=== PATIENT | female | born 1955 | race African-American/Black ===

== ENCOUNTER 2017-04-13 07:09 | Inpatient (IN) | payer OTHER ==
[2017-04-13] MEDS ORDERED: NEOSTIGMINE METHYLSULFATE 10 MG/10 ML VIAL ONE (07:52)
[2017-04-13] MEDS ORDERED: DEXAMETHASONE SOD PHOSPHATE INJ 4 MG/1 ML VIAL ONE (07:52)
[2017-04-13] MEDS ORDERED: ONDANSETRON HCL INJ/PF 4 MG/2 ML SDV ONE (07:52)
[2017-04-13] MEDS ORDERED: GLYCOPYRROLATE INJ 0.4 MG/2 ML VIAL ONE (07:52)
[2017-04-13] MEDS ORDERED: KETOROLAC TROMETHAMINE 60 MG/2 ML SDV ONE (07:52)
[2017-04-13 07:53] LABS: ABSOLUTE EOSINOPHILS # (AUTO) 0.2 10^3/uL (0.0-0.6); ABSOLUTE MONOCYTES (AUTO) 0.5 10^3/uL (0.1-1.4); ABSOLUTE NEUT (AUTO) 4.1 10^3/uL (1.7-8.2); BASOPHILS % (AUTO) 0.8 % (0-2); HEMATOCRIT 40.4 % (36.0-47.0); HEMOGLOBIN 12.7 g/dL (12.0-15.5); HGB HCT DIFFERENCE -2.3; LYMPHOCYTES % (AUTO) 16.9 % (13-45); MEAN CORPUSCULAR HGB CONC 31.4 g/dL (32.0-36.0); MEAN CORPUSCULAR VOLUME 67 fl (80-97); MONOCYTES % (AUTO) 8.4 % (3-13); RED BLOOD COUNT 6.06 10^6/uL (3.72-5.28); RED CELL DISTRIBUTION WIDTH 14.7 % (11.5-14.0); SEGMENTED NEUTROPHILS % (AUTO) 70.9 % (42-78); WHITE BLOOD COUNT 5.7 10^3/uL (4.0-10.5)
[2017-04-13 08:06] LABS: ALANINE AMINOTRANSFERASE 23 U/L (9-52); ALBUMIN 4.5 g/dL (3.5-5.0); ALKALINE PHOSPHATASE 156 U/L (38-126); ANION GAP 16 (5-19); ASPARTATE AMINO TRANSFERASE 18 U/L (14-36); BILIRUBIN,DIRECT 0.3 mg/dL (0.0-0.4); BILIRUBIN,TOTAL 0.5 mg/dL (0.2-1.3); BLOOD UREA NITROGEN 15 mg/dL (7-20); CALCIUM 9.4 mg/dL (8.4-10.2); CARBON DIOXIDE 21 mmol/L (22-30); CHLORIDE 108 mmol/L (98-107); CREATININE RESULT 1.15 mg/dL (0.52-1.25); GLUCOSE 146 mg/dL (75-110); LIPASE 303.4 U/L (23-300); POTASSIUM 3.9 mmol/L (3.6-5.0); SODIUM 144.8 mmol/L (137-145); TOTAL PROTEIN 8.8 g/dL (6.3-8.2)
[2017-04-13] MEDS ORDERED: MORPHINE SULFATE 10 MG/ML INJ IV ONE (08:13)
[2017-04-13 08:47] LABS: APPEARANCE,URINE SLIGHTLY-CLOUDY; BILIRUBIN,URINE NEGATIVE (NEGATIVE); GLUCOSE, URINE NEGATIVE (NEGATIVE); KETONES,URINE NEGATIVE (NEGATIVE); LEUKOCYTE ESTERASE,URINE LARGE (NEGATIVE); NITRITE,URINE NEGATIVE (NEGATIVE); PROTEIN,URINE NEGATIVE (NEGATIVE); URINE SPECIFIC GRAVITY 1.015; UROBILINOGEN,URINE NEGATIVE mg/dL (<2.0)
--- NOTE | 2017-04-13 08:47 | ER Document Report ---
ED General - General Chief Complaint: Abdominal Pain Stated Complaint: ABDOMINAL PAIN Time Seen by Provider: 04/13/17 07:27 Mode of Arrival: Ambulatory Information source: Patient Notes: 62-year-old female history of intestinal obstruction presents with complaints of abdominal cramping that started this morning. Patient notes yesterday she had a bowel movement she had no other complaints this morning she has had no bowel movement and feels bloated. Patient has not been nauseous or vomiting. TRAVEL OUTSIDE OF THE [place] IN LAST 30 DAYS: No - HPI Onset: Just prior to arrival Onset/Duration: Sudden Quality of pain: Cramping Severity: Mild Pain Level: 1 Associated symptoms: Other Exacerbated by: Denies Relieved by: Denies Similar symptoms previously: Yes Recently seen / treated by doctor: No - Related Data Allergies/Adverse Reactions: No Known Allergies Allergy (Verified 01/09/12 17:48) Past Medical History - Social History Smoking Status: Never Smoker Cigarette use (# per day): No Chew tobacco use (# tins/day): No Smoking Education Provided: No Frequency of alcohol use: None Drug Abuse: None Family History: Reviewed & Not Pertinent Patient has suicidal ideation: No Patient has homicidal ideation: No - Past Medical History Cardiac Medical History: Reports: Hx Hypercholesterolemia, Hx Hypertension Pulmonary Medical History: Denies: Hx Tuberculosis Neurological Medical History: Denies: Hx Seizures Endocrine Medical History: Reports: Hx Diabetes Mellitus Type 2 Renal/ Medical History: Denies: Hx Peritoneal Dialysis GI Medical History: Reports: Hx Gastroesophageal Reflux Disease, Hx Hiatal Hernia Past Surgical History: Reports: Hx Abdominal Surgery - hernia-7yrs ago, Hx Section, Hx Hysterectomy. Denies: Hx Pacemaker - Immunizations Hx Diphtheria, Pertussis, Tetanus Vaccination: - known Hx Pneumococcal Vaccination: 06/25/06 Review of Systems - Review of Systems Notes: REVIEW OF SYSTEMS: CONSTITUTIONAL : Denies fever, chills, or sweats. Denies recent illness. EENT: Denies eye, ear, throat, or mouth pain or symptoms. Denies nasal or sinus congestion or discharge. Denies throat, tongue, or mouth swelling or difficulty swallowing. CARDIOVASCULAR: Denies chest pain. Denies palpitations or racing or irregular heart beat. Denies ankle edema. RESPIRATORY: Denies cough, cold, or chest congestion. Denies shortness of breath, difficulty breathing, or wheezing. GASTROINTESTINAL: Admits to abdominal pain. GENITOURINARY: Denies difficulty urinating, painful urination, burning, frequency, blood in urine, or discharge. FEMALE GENITOURINARY: Denies vaginal bleeding, heavy or abnormal periods, irregular periods. Denies vaginal discharge or odor. MUSCULOSKELETAL: Denies back or neck pain or stiffness. Denies joint pain or swelling. SKIN: Denies rash, lesions or sores. HEMATOLOGIC : Denies easy bruising or bleeding. LYMPHATIC: Denies swollen, enlarged glands. NEUROLOGICAL: Denies confusion or altered mental status. Denies passing out or loss of consciousness. Denies dizziness or lightheadedness. Denies headache. Denies weakness or paralysis or loss of use of either side. Denies problems with gait or speech. Denies sensory loss, numbness, or tingling. Denies seizures. PSYCHIATRIC: Denies anxiety or stress. Denies depression, suicidal ideation, or homicidal ideation. ALL OTHER SYSTEMS REVIEWED AND NEGATIVE. PHYSICAL EXAMINATION: GENERAL: Well-appearing, well-nourished and in no acute distress. HEAD: Atraumatic, normocephalic. EYES: Pupils equal round and reactive to light, extraocular movements intact, conjunctiva are normal. ENT: Nares patent, oropharynx clear without exudates. Moist mucous membranes. NECK: Normal range of motion, supple without lymphadenopathy LUNGS: Breath sounds clear to auscultation bilaterally and equal. No wheezes rales or rhonchi. HEART: Regular rate and rhythm without murmurs ABDOMEN: Soft, n tender in the suprapubic region no rebound or guarding Female : deferred Musculoskeletal: Normal range of motion, no pitting or edema. No cyanosis. NEUROLOGICAL: Cranial nerves grossly intact. Normal speech, normal gait. Normal sensory, motor exams PSYCH: Normal mood, normal affect. SKIN: Warm, Dry, normal turgor, no rashes or lesions noted. Dictation was performed using [employer] voice recognition software Course - Re-evaluation Re-evalutation: 04/13/17 08:47 CT abdomen pelvis with oral and IV contrast pending to rule out any abdominal obstruction 04/13/17 10:37 Patient is noted to have an obstruction on CT with oral and IV contrast Dr. Bell has been notified NG tube has been ordered - Laboratory Result Diagrams: 04/13/17 07:43 04/13/17 07:43 Laboratory results interpreted by me: 04/13/17 04/13/17 04/13/17 07:43 07:43 08:30 RBC 6.06 H MCV 67 L MCH 21.0 L MCHC 31.4 L RDW 14.7 H Chloride 108 H Carbon Dioxide 21 L Est GFR ( Amer) 58 L Est GFR (Non-Af Amer) 48 L Glucose 146 H Alkaline Phosphatase 156 H Total Protein 8.8 H Lipase 303.4 H Urine Blood MODERATE H Ur Leukocyte Esterase LARGE H - Diagnostic Test Radiology reviewed: Image reviewed, Reports reviewed Discharge - Discharge Clinical Impression: SBO (small bowel obstruction) Condition: Stable Disposition: ADMITTED INPATIENT Admitting Provider: Surgicalist Unit Admitted: Surgical Floor Referrals: SHIRA STEINBERG MD [Primary Care Provider] - Follow up as needed
--- NOTE | 2017-04-13 10:31 | RADIOLOGY REPORT (SQ) ---
EXAM DESCRIPTION: CT ABD/PELVIS WITH IV ORAL COMPLETED DATE/TIME: 04/13/2017 10:10 am REASON FOR STUDY: abd pain COMPARISON: None. TECHNIQUE: CT scan of the abdomen and pelvis performed using helical scanning technique with dynamic intravenous contrast injection. No oral contrast. Images reviewed with lung, soft tissue, and bone windows. Reconstructed coronal and sagittal MPR images reviewed. Delayed images for evaluation of the urinary system also acquired. All images stored on PACS. All CT scanners at this facility use dose modulation, iterative reconstruction, and/or weight based d osing when appropriate to reduce radiation dose to as low as reasonably achievable (ALARA). [facility]: Dose Right [facility]: CareDose [facility]: Dose Right [facility]: Teradose 4D [facility]: [email or web address] CONTRAST TYPE AND DOSE: contrast/concentration: Isovue 370.00 mg/ml; Total Contrast Delivered: 100.0 ml; Total Saline Delivered: 54.4 ml RENAL FUNCTION: Creatinine 1.15 RADIATION DOSE: Up-to-date CT equipment and radiation dose reduction techniques were employed. CTDIv ol: NaN - NaN mGy. DLP: 0 mGy-cm.. LIMITATIONS: None. FINDINGS: LOWER CHEST: There are some minimal linear densities in the lung bases most consistent wit h subsegmental atelectasis. LIVER: Normal size. No masses. No dilated ducts. SPLEEN: Normal size. No focal lesions. PANCREAS: No masses. No significant calcifications. No adjacent inflammation or peripancreatic fluid collections. Pancreatic duct not dilated. GALLBLADDER: No identified stones by CT criteria. No inflammatory changes to suggest cholecystitis. ADRENAL GLANDS: No significant masses or asymmetry. RIGHT KIDNEY AND URETER: No solid masses. No significant calcifications. No hydronephrosis or hyd roureter. LEFT KIDNEY AND URETER: No solid masses. No significant calcifications. No hydronephrosis or hydr oureter. AORTA AND VESSELS: No aneurysm. No dissection. Renal arteries, SMA, celiac without stenosis. RETROPERITONEUM: No retroperitoneal adenopathy, hemorrhage or masses. BOWEL AND PERITONEAL CAVITY: There is a large anterolateral hernia sac on the right containing bowel. There are dilated small bowel loops consistent with a small bowel obstruction. A "whirl" sign is i dentified consistent with rotation of the bowel around a vascular axis and the appearance would sugge st a closed loop obstruction. Clinical correlation is recommended. APPENDIX: Not identified PELVIS: No mass. No free fluid. Normal bladder. ABDOMINAL WALL: No masses. Large anterolateral hernia sac on the right. A smaller ventral hernia is identified just to the right of midline containing fat. BONES: No significant or acute findings. OTHER: No other significant finding. IMPRESSION: There is a large anterolateral hernia sac on the right containing bowel. There are dila sandro small bowel loops with an associated "whirl" sign suggesting a closed loop obstruction. Clinical correlation is recommended. Other findings as noted above TECHNICAL DOCUMENTATION: JOB ID: [id number] Quality ID # [id number]: Final reports with documentation of one or more dose reduction techniques (e.g., Au tomated exposure control, adjustment of the mA and/or kV according to patient size, use of iterative reconstruction technique) 2010 [employer]- All Rights Reserved
[2017-04-13] MEDS ORDERED: PHARMACY COMMUNICATION ORDER MC NR (10:45)
[2017-04-13] MEDS ORDERED: MORPHINE SULFATE 10 MG/ML INJ IV PRN ×2 (11:10→13:18)
[2017-04-13] MEDS ORDERED: RINGERS SOLUTION,LACTATED 1,000 ML IV ONE (11:10)
--- NOTE | 2017-04-13 11:28 | RADIOLOGY REPORT (SQ) ---
EXAM DESCRIPTION: KUB/ABDOMEN (SINGLE VIEW) COMPLETED DATE/TIME: 04/13/2017 11:19 am REASON FOR STUDY: Check Placement of NG Tube COMPARISON: None. TECHNIQUE: AP view of the lower thorax and upper abdomen LIMITATIONS: None. FINDINGS: NG tube is identified with its tip in the left upper quadrant presumably within the stomac h. IMPRESSION: NG tube with its tip in the left upper quadrant presumably within the stomach. TECHNICAL DOCUMENTATION: JOB ID: [id number] [employer]- All Rights Reserved
--- NOTE | 2017-04-13 11:59 | PDOC H&P ---
History of Present Illness Admission Date/PCP: 04/13/17 10:49 SHIRA STEINBERG MD Patient complains of: Abdominal pain History of Present Illness: TAJ PENN is a 62 year old female with 24 hr hisory of abdominal pain. No N/V or diarrhea. Normal BM yesterday. PMH sign for obstructed UH in 2011 requiring surgery. Past Medical History Cardiac Medical History: Reports: Hyperlipidema, Hypertension Pulmonary Medical History: Denies: Tuberculosis Neurological Medical History: Denies: Seizures Endocrine Medical History: Reports: Diabetes Mellitus Type 2 GI Medical History: Reports: Gastroesophageal Reflux Disease, Hiatal Hernia Hematology: Reports: Anemia Past Surgical History Past Surgical History: Reports: Section, Herniorrhaphy, Hysterectomy Denies: Pacemaker Social History Lives with: Family Smoking Status: Never Smoker Frequency of Alcohol Use: None Hx Recreational Drug Use: No Hx Prescription Drug Abuse: No Family History Family History: Reviewed & Not Pertinent Parental Family History Reviewed: No Children Family History Reviewed: Unknown Sibling(s) Family History Reviewed.: Unknown Medication/Allergy Home Medications: Atenolol [Tenormin 50 Mg Tablet] 50 mg PO DAILY 01/09/12 Cholecalciferol (Vitamin D3) [Vitamin D3 50,000 unit Capsule] 50,000 unit PO DAILY 01/09/12 Ibuprofen [Motrin 800 Mg Tablet] 800 mg PO TID 01/09/12 Metformin HCl [Glucophage XR 750 mg Tablet] 750 mg PO QHS 01/09/12 Potassium Chloride [Klor-Con 10 Meq Tablet.sa] 20 meq PO DAILY 01/09/12 Simvastatin [Zocor 40 mg Tablet] 40 mg PO QHS 01/09/12 Tramadol HCl/Acetaminophen [Ultracet Tablet] 1 each PO Q8H PRN 01/09/12 Allergies/Adverse Reactions: No Known Allergies Allergy (Verified 01/09/12 17:48) Review of Systems All systems: reviewed and no additional remarkable complaints except as stated Physical Exam General appearance: PRESENT: no acute distress, cooperative, mild distress Head exam: PRESENT: atraumatic Eye exam: PRESENT: EOMI, PERRLA Ear exam: PRESENT: normal external ear exam Mouth exam: PRESENT: moist Neck exam: PRESENT: full ROM. ABSENT: carotid bruit Respiratory exam: PRESENT: clear to auscultation danielle, symmetrical. ABSENT: crackles, rhonchi, wheezes Cardiovascular exam: PRESENT: RRR. ABSENT: diastolic murmur, systolic murmur Pulses: PRESENT: normal carotid pulses, normal radial pulses GI/Abdominal exam: PRESENT: hernia, hyperactive bowel sounds, tenderness Rectal exam: PRESENT: deferred Extremities exam: ABSENT: calf tenderness Neurological exam: PRESENT: alert, awake, oriented to person, oriented to place , oriented to time, oriented to situation, reflexes normal, CN II-XII grossly intact Psychiatric exam: PRESENT: appropriate affect, normal mood Skin exam: PRESENT: intact, normal color, warm Results Impressions: Abdomen/Pelvis CT 04/13/17 00:00 IMPRESSION: There is a large anterolateral hernia sac on the right containing bowel. There are dilated small bowel loops with an associated "whirl" sign suggesting a closed loop obstruction. Clinical correlation is recommended. Other findings as noted above KUB X-Ray 04/13/17 10:37 IMPRESSION: NG tube with its tip in the left upper quadrant presumably within the stomach. Assessment & Plan - Diagnosis (1) Type II diabetes mellitus Qualifiers: Diabetes mellitus complication status: without complication Is this a current diagnosis for this admission?: Yes Plan: Continue current therapy. (2) Recurrent abdominal hernia with obstruction without gangrene Qualifiers: Hernia type: unspecified Qualified Code(s): K45.0 - Other specified abdominal hernia with obstruction, without gangrene Is this a current diagnosis for this admission?: Yes Plan: To surgery for repair of hernia with mesh. (3) Hypertension Qualifiers: Hypertension type: essential hypertension Qualified Code(s): I10 - Essential (primary) hypertension Is this a current diagnosis for this admission?: Yes Plan: Continue currrent therapy. (4) Hyperlipidemia associated with type 2 diabetes mellitus Is this a current diagnosis for this admission?: Yes Plan: Continue current theray. - Inpatient Certification I certify that my determination is in accordance with my understanding of Medicare's requirements for reasonable and necessary INPATIENT services [42 CFR 412.3e].: Yes Medical Necessity: Need for Surgery
[2017-04-13] MEDS ORDERED: CEFAZOLIN INJ 1 GM VIAL ONE (12:09)
--- NOTE | 2017-04-13 12:23 | EKG REPORT ---
SEVERITY:- ABNORMAL ECG - SINUS RHYTHM RBBB AND LAFB : Confirmed by: Misty Ji MD 13-Apr-2017 12:22:31
[2017-04-13] MEDS ORDERED: MIDAZOLAM 2 MG/2 ML INJ ONE (12:29)
[2017-04-13] MEDS ORDERED: CEFAZOLIN 2 GM/D5W RTU 2 GM/50 ML RTUPB IV ONE (12:29)
[2017-04-13] MEDS ORDERED: FENTANYL CITRATE INJ/PF 250 MCG/5 ML AMPULE ONE (12:29)
[2017-04-13] MEDS ORDERED: PROPOFOL INJ 200 MG/20 ML VIAL IV ONE (12:29)
[2017-04-13] MEDS ORDERED: DIPHENHYDRAMINE HCL 50 MG/ML VIAL IV PRN (13:18)
[2017-04-13] MEDS ORDERED: MEPERIDINE HCL/PF INJ 25 MG/1 ML DISP.SYRIN IV PRN (13:18)
[2017-04-13] MEDS ORDERED: OXYCODONE-ACETAMINOPHEN 5-325 MG TABLET PO PRN ×2 (13:18)
[2017-04-13] MEDS ORDERED: FENTANYL CITRATE INJ/PF 100 MCG/2 ML AMPUL IV PRN ×3 (13:18)
[2017-04-13] MEDS ORDERED: PROMETHAZINE HCL INJ 25 MG/1 ML VIAL IV PRN ×2 (13:18)
[2017-04-13] MEDS ORDERED: NALOXONE HCL INJ/PF 0.4 MG/1 ML SDV ONE (15:54)
--- NOTE | 2017-04-13 16:27 | Operative Report ---
Operative Report DATE OF SURGERY: 04/13/17 PREOPERATIVE DIAGNOSIS: Incarecerated incisional hernia with small bowel obstruction. POSTOPERATIVE DIAGNOSIS: Incarcerated incisional hernia. Intra abdominal adhesions with internal hernia and twisted SB mesentery. OPERATION: Exploratory Laparotomy, lysis of multiple adhesions, reduction of internal hernia, mesh repair of abdominal wall, component separation of anterior abdominal wall with fascial closure over mesh. SURGEON: Pratima Bell ANESTHESIA: GA TISSUE REMOVED OR ALTERED: hernia sac COMPLICATIONS: None ESTIMATED BLOOD LOSS: 100 cc INTRAOPERATIVE FINDINGS: There was loss of domain with approximately 50% of the SB in the subQ space. There was a large hernia sac in the RLQ. Exploration and JENNIFER (yoselyn. 30 min) revealed adhesions in the RLQ around which the SB mesentery had twisted. This was reduced. The SB was run, no other pathology found. PROCEDURE: The patient was brought to the OR and identified. GA was given. Hendrickson catheter was placed. Abdomen was prepped and draped. Time out was performed and agreed upon by all member of the OR team. Patient was given 2 grams of Ancef. Mid line incision was made. Careful dissection was done as there was dense adhesions. The hernia sac was identified and opened. The bowel was inspected and the SB run. In the RLQ adhesions were present around which the SB mesentery had twisted. The adhesions were divided and the mesentery returned to the normal position. No other pathology was found in the SB. The abdominal wall was freed of all adhesions. The SB was returned to the abdomin. A 20X15 cm dual mesh was secured to the posterior abdominal wall. Fascial ely were use to secure the left side and 0 prolene sutures on the right. The anterior rectus fascia was incised laterally on both sides and an anterior abdominal wall compartment separation was done. The fascia was closed in the midline with 0 prolene. The fascia completely covered the mesh. 2 RUI drains were placed. The abdomen was inspected for hemostasis, irrigated with saline and closed with Vicryl and ely. All counts were correct. Final time out/debriefing was done.
[2017-04-13] MEDS ORDERED: DEXTROSE 50%-WATER SYRINGE 12.5 GM/25 ML DOSE IV PRN (16:45)
[2017-04-13] MEDS ORDERED: DEXTROSE 40% GEL 15 GM TUBE PO PRN (16:45)
[2017-04-13] MEDS ORDERED: GLUCAGON,HUMAN RECOMB 1 MG INJ IM PRN (16:45)
[2017-04-13] MEDS ORDERED: DEXTROSE 40% GEL 15 GM TUBE X 2 PO PRN (16:45)
[2017-04-13] MEDS ORDERED: DEXTROSE 50%-WATER SYRINGE 25 GM/50 ML DOSE IV PRN (16:45)
[2017-04-13] MEDS: INSULIN LISPRO 100 UNIT/ML 3 ML VIAL SUBCUT PRN ×2 (17:40→23:53)
[2017-04-13] MEDS: CEFAZOLIN 2 GM/D5W RTU 2 GM/50 ML RTUPB IV SCH ×2 (17:41→23:53)
[2017-04-13] MEDS: MORPHINE SULFATE 10 MG/ML INJ IV PRN ×3 (17:42→22:10)
[2017-04-13] MEDS: DEXTROSE 5%-1/2 NORMAL SALINE 1,000 ML IV PRN (17:56)
[2017-04-13] MEDS ORDERED: INFLUENZA ADLT QUAD (36MOS+) 2017-18 VAC 0.5 ML SYR IM PRN (18:24)
[2017-04-13] MEDS ORDERED: ENOXAPARIN SODIUM INJ 30 MG/0.3 ML DISP.SYRIN SUBCUT ONE (22:00)
[2017-04-13] MEDS: SIMVASTATIN 40 MG TABLET PO SCH (22:02)
[2017-04-14] MEDS: MORPHINE SULFATE 10 MG/ML INJ IV PRN ×10 (00:49→23:40)
[2017-04-14] MEDS: DEXTROSE 5%-1/2 NORMAL SALINE 1,000 ML IV PRN ×2 (03:11→13:00)
[2017-04-14 06:47] LABS: ABSOLUTE LYMPHOCYTES (AUTO) 0.9 10^3/uL (0.5-4.7); ABSOLUTE MONOCYTES (AUTO) 1.1 10^3/uL (0.1-1.4); ABSOLUTE NEUT (AUTO) 11.3 10^3/uL (1.7-8.2); BASOPHILS % (AUTO) 0.3 % (0-2); HEMATOCRIT 35.4 % (36.0-47.0); HEMOGLOBIN 11.3 g/dL (12.0-15.5); HGB HCT DIFFERENCE -1.5; LYMPHOCYTES % (AUTO) 6.4 % (13-45); MEAN CORPUSCULAR HEMOGLOBIN 21.1 pg (27.0-33.4); MEAN CORPUSCULAR HGB CONC 31.9 g/dL (32.0-36.0); MEAN CORPUSCULAR VOLUME 66 fl (80-97); RED BLOOD COUNT 5.36 10^6/uL (3.72-5.28); RED CELL DISTRIBUTION WIDTH 14.8 % (11.5-14.0); SEGMENTED NEUTROPHILS % (AUTO) 85.3 % (42-78)
[2017-04-14 06:54] LABS: WHITE BLOOD COUNT 13.3 10^3/uL (4.0-10.5)
[2017-04-14 06:57] LABS: ANION GAP 14 (5-19); BLOOD UREA NITROGEN 16 mg/dL (7-20); CARBON DIOXIDE 20 mmol/L (22-30); CHLORIDE 105 mmol/L (98-107); CREATININE RESULT 1.05 mg/dL (0.52-1.25); GLUCOSE 199 mg/dL (75-110); POTASSIUM 3.9 mmol/L (3.6-5.0); SODIUM 138.5 mmol/L (137-145)
[2017-04-14] MEDS ORDERED: DEXTROSE 5%-1/2 NORMAL SALINE 500 ML IV ONE (07:00)
[2017-04-14] MEDS ORDERED: PHENOL/SODIUM PHENOLATE 100 SPRAY/177 ML BOTTLE PO PRN (08:29)
[2017-04-14] MEDS: ATENOLOL 50 MG TABLET PO SCH (09:48)
[2017-04-14] MEDS: ENOXAPARIN SODIUM INJ 30 MG/0.3 ML DISP.SYRIN SUBCUT SCH (10:05)
[2017-04-14] MEDS: INSULIN LISPRO 100 UNIT/ML 3 ML VIAL SUBCUT PRN ×2 (12:06→18:40)
[2017-04-14] MEDS ORDERED: HYDRALAZINE HCL INJ/PF 20 MG/1 ML SDV ONE (15:47)
[2017-04-14] MEDS: HYDRALAZINE HCL INJ/PF 20 MG/1 ML SDV IV PRN (15:54)
[2017-04-14] MEDS ORDERED: LOSARTAN POTASSIUM 50 MG TABLET PO ONE (16:45)
[2017-04-14 17:22] LABS: HEMATOCRIT 33.2 % (36.0-47.0); HEMOGLOBIN 10.5 g/dL (12.0-15.5); HGB HCT DIFFERENCE -1.7; MEAN CORPUSCULAR HEMOGLOBIN 20.9 pg (27.0-33.4); MEAN CORPUSCULAR HGB CONC 31.7 g/dL (32.0-36.0); MEAN CORPUSCULAR VOLUME 66 fl (80-97); RED BLOOD COUNT 5.05 10^6/uL (3.72-5.28); RED CELL DISTRIBUTION WIDTH 14.7 % (11.5-14.0); WHITE BLOOD COUNT 12.7 10^3/uL (4.0-10.5)
[2017-04-14] MEDS ORDERED: PANTOPRAZOLE SODIUM 40 MG VIAL IV ONE ×2 (17:30→18:35)
[2017-04-14 17:39] LABS: ANION GAP 13 (5-19); BLOOD UREA NITROGEN 13 mg/dL (7-20); CALCIUM 7.5 mg/dL (8.4-10.2); CARBON DIOXIDE 20 mmol/L (22-30); CHLORIDE 103 mmol/L (98-107); CREATININE RESULT 1.03 mg/dL (0.52-1.25); GLUCOSE 211 mg/dL (75-110); POTASSIUM 3.7 mmol/L (3.6-5.0); SODIUM 136.4 mmol/L (137-145)
[2017-04-14 17:40] LABS: BASOPHILS % (MANUAL) 0 % (0-2); EOSINOPHILS % (MANUAL) 0 % (0-6); LYMPHOCYTES % (MANUAL) 9 % (13-45); TOTAL CELLS COUNTED 100
[2017-04-14 17:43] LABS: HYPOCHROMASIA 1+; OVALOCYTES SLIGHT; PLATELET CLUMPS PRESENT; POIKILOCYTOSIS SLIGHT; POLYCHROMASIA SLIGHT; ROULEAUX SLIGHT
--- NOTE | 2017-04-14 17:58 | PDOC PROGRESS REPORT ---
Physical Exam Vital Signs: Temp Pulse Resp BP Pulse Ox 100.2 F 110 H 18 164/87 H 96 04/14/17 17:07 04/14/17 17:07 04/14/17 17:07 04/14/17 17:07 04/14/17 17:07 Intake & Output 04/13/17 04/14/17 04/15/17 06:59 06:59 06:59 Intake Total 2525 1425 Output Total 3015 120 Balance -490 1305 Results Laboratory Results: 04/14/17 17:11 04/14/17 17:11 04/14/17 04/14/17 04/14/17 06:11 06:11 17:11 WBC 13.3 H D 12.7 H RBC 5.36 H 5.05 Hgb 11.3 L 10.5 L Hct 35.4 L 33.2 L MCV 66 L 66 L MCH 21.1 L 20.9 L MCHC 31.9 L 31.7 L RDW 14.8 H 14.7 H Plt Count 238 228 Seg Neutrophils % 85.3 H Not Reportable Lymphocytes % 6.4 L Not Reportable Monocytes % 8.0 Not Reportable Eosinophils % 0.0 Not Reportable Basophils % 0.3 Not Reportable Absolute Neutrophils 11.3 H Not Reportable Absolute Lymphocytes 0.9 Not Reportable Absolute Monocytes 1.1 Not Reportable Absolute Eosinophils 0.0 Not Reportable Absolute Basophils 0.0 Not Reportable Sodium 138.5 Potassium 3.9 Chloride 105 Carbon Dioxide 20 L Anion Gap 14 BUN 16 Creatinine 1.05 Est GFR ( Amer) > 60 Est GFR (Non-Af Amer) 53 L Glucose 199 H Calcium 8.0 L 04/14/17 17:11 WBC RBC Hgb Hct MCV MCH MCHC RDW Plt Count Seg Neutrophils % Lymphocytes % Monocytes % Eosinophils % Basophils % Absolute Neutrophils Absolute Lymphocytes Absolute Monocytes Absolute Eosinophils Absolute Basophils Sodium 136.4 L Potassium 3.7 Chloride 103 Carbon Dioxide 20 L Anion Gap 13 BUN 13 Creatinine 1.03 Est GFR ( Amer) > 60 Est GFR (Non-Af Amer) 55 L Glucose 211 H Calcium 7.5 L Impressions: Abdomen/Pelvis CT 04/13/17 00:00 IMPRESSION: There is a large anterolateral hernia sac on the right containing bowel. There are dilated small bowel loops with an associated "whirl" sign suggesting a closed loop obstruction. Clinical correlation is recommended. Other findings as noted above KUB X-Ray 04/13/17 10:37 IMPRESSION: NG tube with its tip in the left upper quadrant presumably within the stomach. Assessment & Plan - Diagnosis (1) Type II diabetes mellitus Qualifiers: Diabetes mellitus complication status: without complication Is this a current diagnosis for this admission?: Yes (2) Recurrent abdominal hernia with obstruction without gangrene Qualifiers: Hernia type: unspecified Qualified Code(s): K45.0 - Other specified abdominal hernia with obstruction, without gangrene Is this a current diagnosis for this admission?: Yes (3) Hypertension Qualifiers: Hypertension type: essential hypertension Qualified Code(s): I10 - Essential (primary) hypertension Is this a current diagnosis for this admission?: Yes (4) Hyperlipidemia associated with type 2 diabetes mellitus Is this a current diagnosis for this admission?: Yes
--- NOTE | 2017-04-14 18:04 | PDOC PROGRESS REPORT ---
Subjective Progress Note for:: 04/14/17 Subjective:: Status post incisional hernia repair with mesh. Feels well without complaints. Hendrickson catheter had to be replaced this morning due to inability to void. Physical Exam Vital Signs: Temp Pulse Resp BP Pulse Ox 100.2 F 110 H 18 164/87 H 96 04/14/17 17:07 04/14/17 17:07 04/14/17 17:07 04/14/17 17:07 04/14/17 17:07 Intake & Output 04/13/17 04/14/17 04/15/17 06:59 06:59 06:59 Intake Total 2525 1425 Output Total 3015 120 Balance -490 1305 General appearance: PRESENT: mild distress Head exam: PRESENT: atraumatic Respiratory exam: PRESENT: clear to auscultation danielle Cardiovascular exam: PRESENT: RRR - Bowel sounds are positive. Abdomen is mildly distended. Incision is clean dry and intact. Drains are draining serosanguineous fluid. Expected amount of incisional tenderness. Results Laboratory Results: 04/14/17 17:11 04/14/17 17:11 04/14/17 04/14/17 04/14/17 06:11 06:11 17:11 WBC 13.3 H D 12.7 H RBC 5.36 H 5.05 Hgb 11.3 L 10.5 L Hct 35.4 L 33.2 L MCV 66 L 66 L MCH 21.1 L 20.9 L MCHC 31.9 L 31.7 L RDW 14.8 H 14.7 H Plt Count 238 228 Seg Neutrophils % 85.3 H Not Reportable Lymphocytes % 6.4 L Not Reportable Monocytes % 8.0 Not Reportable Eosinophils % 0.0 Not Reportable Basophils % 0.3 Not Reportable Absolute Neutrophils 11.3 H Not Reportable Absolute Lymphocytes 0.9 Not Reportable Absolute Monocytes 1.1 Not Reportable Absolute Eosinophils 0.0 Not Reportable Absolute Basophils 0.0 Not Reportable Sodium 138.5 Potassium 3.9 Chloride 105 Carbon Dioxide 20 L Anion Gap 14 BUN 16 Creatinine 1.05 Est GFR ( Amer) > 60 Est GFR (Non-Af Amer) 53 L Glucose 199 H Calcium 8.0 L 04/14/17 17:11 WBC RBC Hgb Hct MCV MCH MCHC RDW Plt Count Seg Neutrophils % Lymphocytes % Monocytes % Eosinophils % Basophils % Absolute Neutrophils Absolute Lymphocytes Absolute Monocytes Absolute Eosinophils Absolute Basophils Sodium 136.4 L Potassium 3.7 Chloride 103 Carbon Dioxide 20 L Anion Gap 13 BUN 13 Creatinine 1.03 Est GFR ( Amer) > 60 Est GFR (Non-Af Amer) 55 L Glucose 211 H Calcium 7.5 L Impressions: Abdomen/Pelvis CT 04/13/17 00:00 IMPRESSION: There is a large anterolateral hernia sac on the right containing bowel. There are dilated small bowel loops with an associated "whirl" sign suggesting a closed loop obstruction. Clinical correlation is recommended. Other findings as noted above KUB X-Ray 04/13/17 10:37 IMPRESSION: NG tube with its tip in the left upper quadrant presumably within the stomach. Assessment & Plan - Diagnosis (1) Type II diabetes mellitus Qualifiers: Diabetes mellitus complication status: without complication Diabetes mellitus longterm insulin use: without longterm use Qualified Code(s): E11.9 - Type 2 diabetes mellitus without complications Is this a current diagnosis for this admission?: Yes (2) Recurrent abdominal hernia with obstruction without gangrene Qualifiers: Hernia type: unspecified Qualified Code(s): K45.0 - Other specified abdominal hernia with obstruction, without gangrene Is this a current diagnosis for this admission?: Yes Plan: Patient is postop day 1 from hernia repair. Her postop course is as expected. No untoward events. Able to void this morning therefore Hendrickson catheter was replaced. NG tube output has been low. Tube was clamped and will be taken out later today if no residual or nausea and vomiting. (3) Hypertension Qualifiers: Hypertension type: essential hypertension Qualified Code(s): I10 - Essential (primary) hypertension Is this a current diagnosis for this admission?: Yes (4) Hyperlipidemia associated with type 2 diabetes mellitus Is this a current diagnosis for this admission?: Yes
[2017-04-14] MEDS ORDERED: LOSARTAN POTASSIUM 50 MG TABLET ONE (18:34)
[2017-04-14] MEDS: SIMVASTATIN 40 MG TABLET PO SCH (22:43)
[2017-04-15] MEDS: INSULIN LISPRO 100 UNIT/ML 3 ML VIAL SUBCUT PRN ×4 (00:23→18:47)
[2017-04-15] MEDS: DEXTROSE 5%-1/2 NORMAL SALINE 1,000 ML IV PRN ×3 (01:19→22:13)
[2017-04-15 06:11] LABS: ABSOLUTE LYMPHOCYTES (AUTO) 0.9 10^3/uL (0.5-4.7); ABSOLUTE MONOCYTES (AUTO) 1.3 10^3/uL (0.1-1.4); ABSOLUTE NEUT (AUTO) 9.9 10^3/uL (1.7-8.2); BASOPHILS % (AUTO) 0.3 % (0-2); EOSINOPHILS % (AUTO) 0.2 % (0-6); HEMOGLOBIN 9.9 g/dL (12.0-15.5); HGB HCT DIFFERENCE -1.3; LYMPHOCYTES % (AUTO) 7.2 % (13-45); MEAN CORPUSCULAR HEMOGLOBIN 20.9 pg (27.0-33.4); MEAN CORPUSCULAR HGB CONC 31.9 g/dL (32.0-36.0); MEAN CORPUSCULAR VOLUME 66 fl (80-97); MONOCYTES % (AUTO) 10.5 % (3-13); RED BLOOD COUNT 4.72 10^6/uL (3.72-5.28); RED CELL DISTRIBUTION WIDTH 14.3 % (11.5-14.0); SEGMENTED NEUTROPHILS % (AUTO) 81.8 % (42-78)
[2017-04-15 06:32] LABS: ALANINE AMINOTRANSFERASE 21 U/L (9-52); ALBUMIN 2.9 g/dL (3.5-5.0); ALKALINE PHOSPHATASE 91 U/L (38-126); ANION GAP 12 (5-19); ASPARTATE AMINO TRANSFERASE 11 U/L (14-36); BILIRUBIN,DIRECT 0.3 mg/dL (0.0-0.4); BILIRUBIN,TOTAL 0.5 mg/dL (0.2-1.3); BLOOD UREA NITROGEN 11 mg/dL (7-20); CALCIUM 7.5 mg/dL (8.4-10.2); CARBON DIOXIDE 21 mmol/L (22-30); CHLORIDE 104 mmol/L (98-107); GLUCOSE 198 mg/dL (75-110); POTASSIUM 3.5 mmol/L (3.6-5.0); SODIUM 136.6 mmol/L (137-145); TOTAL PROTEIN 6.2 g/dL (6.3-8.2)
[2017-04-15] MEDS: MORPHINE SULFATE 10 MG/ML INJ IV PRN ×2 (07:12→09:44)
[2017-04-15] MEDS: ENOXAPARIN SODIUM INJ 30 MG/0.3 ML DISP.SYRIN SUBCUT SCH (09:08)
[2017-04-15] MEDS: ATENOLOL 50 MG TABLET PO SCH (09:11)
--- NOTE | 2017-04-15 10:03 | PDOC PROGRESS REPORT ---
Subjective Progress Note for:: 04/15/17 Subjective:: Patient states that she feels much better this morning. He has no complaints today. Physical Exam Vital Signs: Temp Pulse Resp BP Pulse Ox 99.0 F 107 H 20 169/87 H 99 04/15/17 07:12 04/15/17 07:12 04/15/17 07:12 04/15/17 07:12 04/15/17 07:12 Intake & Output 04/14/17 04/15/17 04/16/17 06:59 06:59 06:59 Intake Total 2525 1485 Output Total 3015 810 375 Balance -490 675 -375 General appearance: PRESENT: no acute distress Head exam: PRESENT: atraumatic Eye exam: PRESENT: EOMI, PERRLA. ABSENT: scleral icterus Mouth exam: PRESENT: moist Neck exam: PRESENT: full ROM Respiratory exam: PRESENT: clear to auscultation danielle. ABSENT: rales, rhonchi, wheezes Cardiovascular exam: PRESENT: RRR GI/Abdominal exam: PRESENT: other - Abdominal exam is improving. Bowel sounds are positive. Incisions are clean dry and intact. Drains have serous sanguinous fluid. Expected amount of incisional tenderness which is improving. Extremities exam: PRESENT: full ROM, tenderness. ABSENT: calf tenderness Musculoskeletal exam: PRESENT: ambulatory, full ROM Neurological exam: PRESENT: alert, awake, oriented to person, oriented to place , oriented to time, oriented to situation Psychiatric exam: PRESENT: normal mood Skin exam: PRESENT: normal color Results Laboratory Results: 04/15/17 06:00 04/15/17 06:00 04/14/17 04/14/17 04/15/17 17:11 17:11 06:00 WBC 12.7 H 12.0 H RBC 5.05 4.72 Hgb 10.5 L 9.9 L Hct 33.2 L 31.0 L MCV 66 L 66 L MCH 20.9 L 20.9 L MCHC 31.7 L 31.9 L RDW 14.7 H 14.3 H Plt Count 228 202 Seg Neutrophils % Not Reportable 81.8 H Lymphocytes % Not Reportable 7.2 L Monocytes % Not Reportable 10.5 Eosinophils % Not Reportable 0.2 Basophils % Not Reportable 0.3 Absolute Neutrophils Not Reportable 9.9 H Absolute Lymphocytes Not Reportable 0.9 Absolute Monocytes Not Reportable 1.3 Absolute Eosinophils Not Reportable 0.0 Absolute Basophils Not Reportable 0.0 Sodium 136.4 L Potassium 3.7 Chloride 103 Carbon Dioxide 20 L Anion Gap 13 BUN 13 Creatinine 1.03 Est GFR ( Amer) > 60 Est GFR (Non-Af Amer) 55 L Glucose 211 H Calcium 7.5 L Total Bilirubin AST ALT Alkaline Phosphatase Total Protein Albumin 04/15/17 06:00 WBC RBC Hgb Hct MCV MCH MCHC RDW Plt Count Seg Neutrophils % Lymphocytes % Monocytes % Eosinophils % Basophils % Absolute Neutrophils Absolute Lymphocytes Absolute Monocytes Absolute Eosinophils Absolute Basophils Sodium 136.6 L Potassium 3.5 L Chloride 104 Carbon Dioxide 21 L Anion Gap 12 BUN 11 Creatinine 0.90 Est GFR ( Amer) > 60 Est GFR (Non-Af Amer) > 60 Glucose 198 H Calcium 7.5 L Total Bilirubin 0.5 AST 11 L ALT 21 Alkaline Phosphatase 91 Total Protein 6.2 L Albumin 2.9 L Impressions: Abdomen/Pelvis CT 04/13/17 00:00 IMPRESSION: There is a large anterolateral hernia sac on the right containing bowel. There are dilated small bowel loops with an associated "whirl" sign suggesting a closed loop obstruction. Clinical correlation is recommended. Other findings as noted above KUB X-Ray 04/13/17 10:37 IMPRESSION: NG tube with its tip in the left upper quadrant presumably within the stomach. Assessment & Plan - Diagnosis (1) Type II diabetes mellitus Qualifiers: Diabetes mellitus complication status: without complication Diabetes mellitus care home insulin use: without superintendent terminal use Qualified Code(s): E11.9 - Type 2 diabetes mellitus without complications Is this a current diagnosis for this admission?: Yes (2) Recurrent abdominal hernia with obstruction without gangrene Qualifiers: Hernia type: unspecified Qualified Code(s): K45.0 - Other specified abdominal hernia with obstruction, without gangrene Is this a current diagnosis for this admission?: Yes Plan: NG tube was removed last night. No nausea or vomiting. CBC and CMP are stable. No issues with the laboratory data. The patient's clinical status is improving. Her postoperative course is as expected. She is started on clear liquid diet today. Plan to advance as tolerated by tomorrow. She is out of bed and ambulating in the halls. Drains are diminishing in volume. Start oral pain medications. Decrease IV fluid rate until she is fully taking fluids by mouth and then discontinue IV fluids. (3) Hypertension Qualifiers: Hypertension type: essential hypertension Qualified Code(s): I10 - Essential (primary) hypertension Is this a current diagnosis for this admission?: Yes (4) Hyperlipidemia associated with type 2 diabetes mellitus Is this a current diagnosis for this admission?: Yes
[2017-04-15] MEDS ORDERED: MORPHINE SULFATE 10 MG/ML INJ IV PRN (10:30)
[2017-04-15] MEDS ORDERED: HYDROCODONE/ACETAMINOPHEN 5-325 MG TABLET PO PRN (11:08)
[2017-04-15] MEDS: HYDRALAZINE HCL INJ/PF 20 MG/1 ML SDV IV PRN ×2 (11:38→20:03)
[2017-04-15] MEDS: HYDROCODONE/ACETAMINOPHEN 5-325 MG TABLET PO PRN ×3 (11:38→20:19)
[2017-04-15] MEDS: PANTOPRAZOLE SODIUM 40 MG VIAL IV SCH (22:06)
[2017-04-15] MEDS: SIMVASTATIN 40 MG TABLET PO SCH (22:06)
[2017-04-15] MEDS: LOSARTAN POTASSIUM 50 MG TABLET PO SCH (22:08)
[2017-04-16] MEDS: INSULIN LISPRO 100 UNIT/ML 3 ML VIAL SUBCUT PRN ×3 (00:40→18:16)
[2017-04-16] MEDS: HYDRALAZINE HCL INJ/PF 20 MG/1 ML SDV IV PRN ×2 (04:32→11:45)
[2017-04-16] MEDS: ATENOLOL 50 MG TABLET PO SCH (09:12)
[2017-04-16] MEDS: ENOXAPARIN SODIUM INJ 30 MG/0.3 ML DISP.SYRIN SUBCUT SCH (09:12)
[2017-04-16] MEDS: HYDROCODONE/ACETAMINOPHEN 5-325 MG TABLET PO PRN ×3 (09:18→22:03)
[2017-04-16] MEDS: DEXTROSE 5%-1/2 NORMAL SALINE 1,000 ML IV PRN (11:13)
[2017-04-16] MEDS ORDERED: HYDRALAZINE HCL INJ/PF 20 MG/1 ML SDV IV PRN (15:22)
[2017-04-16] MEDS ORDERED: DEXTROSE 5%-1/2 NORMAL SALINE 1,000 ML IV PRN (15:40)
--- NOTE | 2017-04-16 16:08 | PDOC CONSULTATION ---
Consultation Consult Date: 04/16/17 Attending physician:: AYAH GARVEY Consult reason:: Management of uncontrolled high blood pressure History of Present Illness Admission Date/PCP: 04/13/17 10:20 SHIRA STEINBERG MD Patient complains of: Abdominal pain History of Present Illness: TAJ PENN is a 62 year old female with 24 hr hisory of abdominal pain. No N/V or diarrhea. Normal BM yesterday. PMH sign for obstructed UH in [address] scan of the abdomen and pelvis did reveal small bowel obstruction secondary to incarcerated hernia therefore the patient was brought to the operating room and underwent hernia repair and found to have adhesions and therefore adhesional lysis was performed and patient tolerated the procedure. The patient was sent to the medical floor where his blood pressure medication was restarted with atenolol. She was likewise on Micardis but this was not started up until yesterday. Her blood pressure ranges between 200-150 systolic. Patient denies any focal weakness, slurring of speech, chest pain. Postoperatively the patient had some chest congestion intermittently with some mild coughing. Past Medical History Cardiac Medical History: Reports: Hyperlipidema, Hypertension Pulmonary Medical History: Denies: Tuberculosis Neurological Medical History: Denies: Seizures Endocrine Medical History: Reports: Diabetes Mellitus Type 2 GI Medical History: Reports: Gastroesophageal Reflux Disease, Hiatal Hernia Hematology: Reports: Anemia Past Surgical History Past Surgical History: Reports: Section, Herniorrhaphy, Hysterectomy Denies: Pacemaker Social History Information Source: Patient Lives with: Family Smoking Status: Never Smoker Frequency of Alcohol Use: None Hx Recreational Drug Use: No Drugs: None Hx Prescription Drug Abuse: No - Advance Directive Resuscitation Status: Full Code Family History Family History: DM, Hypertension Parental Family History Reviewed: Yes Children Family History Reviewed: Yes Sibling(s) Family History Reviewed.: Yes Medication/Allergy Home Medications: Atenolol [Tenormin 50 Mg Tablet] 50 mg PO DAILY 01/09/12 Cholecalciferol (Vitamin D3) [Vitamin D3 50,000 unit Capsule] 50,000 unit PO METZ@ 1000 01/09/12 Metformin HCl [Glucophage XR 750 mg Tablet] 750 mg PO QHS 01/09/12 Potassium Chloride [Klor-Con 10 Meq Tablet.sa] 15 meq PO DAILY 01/09/12 Simvastatin [Zocor 40 mg Tablet] 40 mg PO QHS 01/09/12 Tramadol HCl/Acetaminophen [Ultracet Tablet] 1 tab PO Q8HP PRN 01/09/12 Cyanocobalamin (Vitamin B-12) [Vitamin B-12 1000 Mcg Tablet] 1,000 mcg PO DAILY 04/14/17 Docusate Sodium [Colace 100 mg Capsule] 100 mg PO BID 04/14/17 Ferrous Sulfate [Iron] 325 mg PO TID 04/14/17 Loratadine [Claritin 10 mg Tablet] 10 mg PO DAILY 04/14/17 Pantoprazole Sodium [Protonix] 40 mg PO DAILY 04/14/17 Sitagliptin Phosphate [Januvia 50 mg Tablet] 100 mg PO DAILY 04/14/17 Telmisartan [Micardis 80 mg Tablet] 80 mg PO DAILY 04/14/17 Tramadol HCl [Ultram 50 mg Tablet] 50 mg PO Q8 04/14/17 Allergies/Adverse Reactions: No Known Allergies Allergy (Verified 01/09/12 17:48) Review of Systems Constitutional: ABSENT: chills, fever(s), headache(s), weakness, weight gain, weight loss Eyes: ABSENT: visual disturbances Ears: ABSENT: hearing changes Nose, Mouth, and Throat: ABSENT: mouth pain, sore throat Cardiovascular: ABSENT: chest pain, dyspnea on exertion, edema, orthropnea, palpitations Respiratory: PRESENT: cough - Occasional and minimal. ABSENT: dyspnea, hemoptysis, sputum Gastrointestinal: PRESENT: abdominal pain - From recent surgery but currently controlled. ABSENT: constipation, diarrhea, hematemesis, hematochezia, melena, nausea, vomiting Genitourinary: ABSENT: difficulty urinating, dysuria, hematuria Musculoskeletal: ABSENT: joint swelling Integumentary: ABSENT: pruritus, rash, wounds Neurological: ABSENT: abnormal gait, abnormal speech, confusion, dizziness, focal weakness, syncope Psychiatric: ABSENT: anxiety, depression, homidical ideation, suicidal ideation Endocrine: ABSENT: cold intolerance, heat intolerance, polydipsia, polyphagia, polyuria Hematologic/Lymphatic: ABSENT: easy bleeding, easy bruising Physical Exam Vital Signs: Temp Pulse Resp BP Pulse Ox 99.1 F 92 22 H 187/87 H 99 04/16/17 11:29 04/16/17 11:29 04/16/17 11:29 04/16/17 11:29 04/16/17 11:29 Intake & Output 04/15/17 04/16/17 04/17/17 06:59 06:59 06:59 Intake Total 1485 240 Output Total 810 1040 850 Balance 675 -219 -610 General appearance: PRESENT: no acute distress, obese Head exam: PRESENT: atraumatic, normocephalic Eye exam: PRESENT: conjunctiva pink, EOMI, PERRLA. ABSENT: scleral icterus Ear exam: PRESENT: normal external ear exam Mouth exam: PRESENT: moist, neck supple, tongue midline Throat exam: ABSENT: post pharyngeal erythema, tonsillar erythema Neck exam: ABSENT: carotid bruit, JVD, lymphadenopathy, thyromegaly Respiratory exam: PRESENT: clear to auscultation danielle, unlabored. ABSENT: rales , rhonchi, wheezes Cardiovascular exam: PRESENT: RRR. ABSENT: diastolic murmur, rubs, systolic murmur Pulses: PRESENT: normal dorsalis pedis pul Vascular exam: PRESENT: normal capillary refill GI/Abdominal exam: PRESENT: hypoactive bowel sounds, soft, tenderness - Minimal tenderness diffusely. ABSENT: distended, guarding, mass - Exam is limited due to discomfort, organolmegaly - Exam is limited due to discomfort, rebound Rectal exam: PRESENT: deferred Extremities exam: PRESENT: full ROM. ABSENT: calf tenderness, clubbing, pedal edema Neurological exam: PRESENT: alert, awake, oriented to person, oriented to place , oriented to time, oriented to situation Psychiatric exam: PRESENT: appropriate affect, normal mood. ABSENT: homicidal ideation, suicidal ideation Skin exam: PRESENT: dry, intact, warm. ABSENT: cyanosis, rash Results Laboratory Results: 04/15/17 06:00 04/15/17 06:00 Impressions: Abdomen/Pelvis CT 04/13/17 00:00 IMPRESSION: There is a large anterolateral hernia sac on the right containing bowel. There are dilated small bowel loops with an associated "whirl" sign suggesting a closed loop obstruction. Clinical correlation is recommended. Other findings as noted above KUB X-Ray 04/13/17 10:37 IMPRESSION: NG tube with its tip in the left upper quadrant presumably within the stomach. Assessment & Plan - Diagnosis (1) Hypertension Qualifiers: Hypertension type: essential hypertension Qualified Code(s): I10 - Essential (primary) hypertension Is this a current diagnosis for this admission?: Yes (2) SBO (small bowel obstruction) Is this a current diagnosis for this admission?: Yes (3) Hyperlipidemia associated with type 2 diabetes mellitus Is this a current diagnosis for this admission?: Yes (4) Type II diabetes mellitus Qualifiers: Diabetes mellitus complication status: without complication Diabetes mellitus bed bug exterminator insulin use: without correction use Qualified Code(s): E11.9 - Type 2 diabetes mellitus without complications Is this a current diagnosis for this admission?: Yes - Time Time Spent: 30 to 50 Minutes - Plan Summary Plan Summary: We are going to increase the patient's atenolol. Continue with current ARB. Give 2 doses of diuretics intravenously. Decrease IV fluids. Give as needed hydralazine for systolic blood pressure greater than 180. Thank you so much for this consultation. We will follow the patient with you.
[2017-04-16] MEDS ORDERED: FUROSEMIDE INJ/PF 40 MG/4 ML SDV IV ONE (16:30)
[2017-04-16] MEDS: LOSARTAN POTASSIUM 50 MG TABLET PO SCH (21:58)
[2017-04-16] MEDS: PANTOPRAZOLE SODIUM 40 MG VIAL IV SCH (22:04)
[2017-04-16] MEDS: SIMVASTATIN 40 MG TABLET PO SCH (22:04)
--- NOTE | 2017-04-17 00:05 | PDOC PROGRESS REPORT ---
Subjective Progress Note for:: 04/16/17 Subjective:: Pt. is w/o c/o Physical Exam Vital Signs: Temp Pulse Resp BP Pulse Ox 98.9 F 93 18 155/74 H 99 04/16/17 20:15 04/16/17 20:15 04/16/17 20:15 04/16/17 20:15 04/16/17 20:15 Intake & Output 04/15/17 04/16/17 04/17/17 06:59 06:59 06:59 Intake Total 1485 240 Output Total 810 1040 980 Balance 675 -800 -980 General appearance: PRESENT: no acute distress Respiratory exam: PRESENT: clear to auscultation danielle Cardiovascular exam: PRESENT: RRR GI/Abdominal exam: PRESENT: normal bowel sounds, soft. ABSENT: distended, guarding, hernia, tenderness Neurological exam: PRESENT: alert, awake, oriented to person, oriented to place , oriented to time, oriented to situation Results Laboratory Results: 04/15/17 06:00 04/15/17 06:00 Impressions: Abdomen/Pelvis CT 04/13/17 00:00 IMPRESSION: There is a large anterolateral hernia sac on the right containing bowel. There are dilated small bowel loops with an associated "whirl" sign suggesting a closed loop obstruction. Clinical correlation is recommended. Other findings as noted above KUB X-Ray 04/13/17 10:37 IMPRESSION: NG tube with its tip in the left upper quadrant presumably within the stomach. Assessment & Plan - Plan Summary Plan Summary: Advance to regular diet. D/C planning for AM.
[2017-04-17] MEDS: INSULIN LISPRO 100 UNIT/ML 3 ML VIAL SUBCUT PRN ×3 (00:34→12:38)
[2017-04-17] MEDS: HYDROCODONE/ACETAMINOPHEN 5-325 MG TABLET PO PRN (08:05)
[2017-04-17] MEDS: ENOXAPARIN SODIUM INJ 30 MG/0.3 ML DISP.SYRIN SUBCUT SCH (09:27)
[2017-04-17] MEDS ORDERED: ATENOLOL 50 MG TABLET PO SCH (10:00)
[2017-04-17] MEDS ORDERED: FUROSEMIDE INJ/PF 40 MG/4 ML SDV IV ONE (10:00)
[2017-04-17 12:45] VITALS: BP 147/66
--- NOTE | 2017-04-17 18:42 | PDOC DISCHARGE SUMMARY ---
Discharge Summary (SDC) - Discharge Final Diagnosis: Recurrent abdominal wall hernia with SBO Date of Surgery: 04/13/17 Discharge Date: 04/17/17 Condition: Stable Forms: Discharge POC-Adult Treatment or Instructions: Follow-up with [facility] in 7 -10 days. No lifting, pulling, pushing > 30lbs for 5 weeks. May shower/bathe, may drive when pain free. Prescriptions: Hydrocodone/Acetaminophen [[place] 5-325 mg Tablet] 1 tab PO Q4HP PRN #20 tablet PRN Reason: Referrals: [facility] [Provider Group] - 04/26/17 1:15 pm (Please follow up with Dr Raymundo on 04/26/17 at 1:15 pm. If you need to reschedule please call the office directly at .) Respiratory Treatments at Home: Incentive Spirometer Discharge Activity: Activity As Tolerated, Balance Activity w/Rest, Slowly Increase Activity, Walk Frequently Home Care Assistance: Provided by Family Report the Following to Your Physician Immediately: Nausea, Vomiting, Increase in Pain, Fever over 101 Degrees, Unusual Bleeding, Redness, Swelling, Warmth, Increased Soreness, Drainage-Yellow, Drainage-Green, Drainage-Foul Smelling
--- NOTE | 2017-04-17 19:57 | HX & PHYSICAL/DISCHG SUMMARY E ---
History and Physical/Discharge Summary NAME: TAJ PENN : 1955 AGE: 62Y ADMITTED: 04/13/2017 DISCHARGED: 04/17/2017 DISCHARGE DIAGNOSIS: Status post repair of incarcerated incisional hernia with small bowel obstruction. PROCEDURE: Included exploratory laparotomy, lysis of adhesions, reduction of internal hernia, mesh repair of abdominal wall, component separation of anterior abdominal wall with fascial closure over mesh. The patient was operated on by Dr. Jay Bell. HOSPITAL COURSE: The patient presented to the hospital on 04/13 with a 24-hour history of abdominal pain. The patient was found to have a large anterolateral hernia sac on the right containing bowel. There were dilated small bowel loops and associated *------* suggesting closed loop obstruction. The patient was taken to the operating room by Dr. Bell on 04/13. The patient's postop course was uneventful. She was started on diet on the secondary postop day and advanced accordingly. The patient is doing quite well and has good bowel function and on postop day #4, patient is afebrile, vital signs are stable. Abdomen is soft, bowel sounds are present, tolerating diet well, having good bowel function. Patient is discharged home on Percocet and will be followed up in the [facility] in 7 to 10 days. Patient has been advised to avoid heavy lifting, pulling, or pushing for the next 5 weeks. DICTATING PHYSICIAN: ANYI HAHN M.D. [id number] PHY#: [id number] ID: [id number] JOB#: [id number] ACCT: [id number] cc:ANYI HAHN M.D. >
== END 2017-04-17 13:30 | disposition home or self-care (01) | DRG 336 ==
LOC: ER 07:09 → EH 10:20 → UNDOADMIN 10:49 → EH 10:49 → 2N 17:13 → EH 17:13
PROVIDERS: ADMIT Transplant Surgery; ATTEND Transplant Surgery
PROC: 0D9670Z Drainage of Stomach with Drainage Device, Via Natural or Artificial Opening (ICD-10-PCS; 2017-04-13)
PROC: 0DN80ZZ Release Small Intestine, Open Approach (ICD-10-PCS; principal; 2017-04-17)
PROC: 0WUF0JZ Supplement Abdominal Wall with Synthetic Substitute, Open Approach (ICD-10-PCS; 2017-04-17)
PROC: 0DNP0ZZ Release Rectum, Open Approach (ICD-10-PCS; 2017-04-17)
DX: K42.0 Umbilical hernia with obstruction, without gangrene (principal); K56.50 Intestinal adhesions [bands], unspecified as to partial versus complete obstruction; E78.5 Hyperlipidemia, unspecified; I10 Essential (primary) hypertension; E11.9 Type 2 diabetes mellitus without complications; K21.9 Gastro-esophageal reflux disease without esophagitis; Z28.21 Immunization not carried out because of patient refusal; Z90.710 Acquired absence of both cervix and uterus; Z79.899 Other long term (current) drug therapy; Z83.3 Family history of diabetes mellitus; Z82.49 Family history of ischemic heart disease and other diseases of the circulatory system
CPT/HCPCS: 36415; 74000; 74177; 80048; 80053; 81001; 82962; 83690; 840; 85025; 88302; 93005; 93010; 94799; 96374; 99285; C1781; J0360; J0690; J1100; J1650; J1815; J1885; J1940; J2250; J2270; J2310; J2405; J2704; J3010; J3490; J7120; S0164

== ENCOUNTER → 2017-06-04 | Outpatient (CLI) | payer OTHER ==
--- NOTE | 2017-06-04 09:55 | WOMENS IMAGING REPORT ---
EXAM DESCRIPTION: BILAT SCREENING MAMMO W/CAD COMPLETED DATE/TIME: 06/04/2017 9:20 am REASON FOR STUDY: ROUTINE SCREENING; Z12.31 Z12.31 ENCNTR SCREEN MAMMOGRAM FOR MALIGNANT NEOPLASM O F ELA COMPARISON: 2010 to 2015 TECHNIQUE: Standard craniocaudal and mediolateral oblique views of each breast recorded using [employer] acquisition. LIMITATIONS: None. FINDINGS: No masses, calcifications or architectural distortion. No areas of suspicion. Read with the assistance of CAD. .[facility] - R2 [employer] Version 1.3 .[facility] - R2 Cenova Version 1.3 .[facility] - R2 Cenova Version 2.4 .[facility] [place] - R2 Cenova Version 2.4 .[facility] - R2 [employer] Functional Tester Version 9.2 IMPRESSION: NORMAL MAMMOGRAM. BIRADS 1. BREAST DENSITY: b. There are scattered areas of fibroglandular density. BIRAD: 1 NEGATIVE RECOMMENDATION: ROUTINE SCREENING COMMENT: The patient has been notified of the results by letter per SA requirements. Additional no tification policies are in place for contacting patient with suspicious or incomplete findings. Quality ID #[id number]: The [employer] recommends an annual screening mammogram for women aged 40 years or over. This facility utilizes a reminder system to ensure that all patients receive reminder letters, and/or direct phone calls for appointments. This includes reminders for routine scr eening mammograms, diagnostic mammograms, or other Breast Imaging Interventions when appropriate. Th is patient will be placed in the appropriate reminder system. The [employer] (ACR) has developed recommendations for screening MRI of the breast s in certain patient populations, to be used in conjunction with mammography. Breast MRI surveillanc e may be appropriate for women with more than 20% lifetime risk of developing breast cancer as deter mined by genetic testing, significant family history of the disease, or history of mantle radiation f or Hodgkins Disease. ACR Practice Guidelines 2008. TECHNICAL DOCUMENTATION: FINDING NUMBER: (1) ASSESSMENT: (1) JOB ID: [id number] [employer]- All Rights Reserved
== END ==
LOC: WI 08:08
PROVIDERS: ATTEND Physician Assistant
DX: Z12.31 Encounter for screening mammogram for malignant neoplasm of breast (principal)
CPT/HCPCS: 77067; G0202

== ENCOUNTER 2017-06-15 11:16 | Inpatient (IN) | payer OTHER ==
[2017-06-15] MEDS ORDERED: SUCCINYLCHOLINE CHLORIDE INJ 200 MG/10 ML VIAL ONE (14:01)
[2017-06-15] MEDS ORDERED: ONDANSETRON HCL INJ/PF 4 MG/2 ML SDV ONE (14:01)
--- NOTE | 2017-06-15 14:35 | RADIOLOGY REPORT (SQ) ---
EXAM DESCRIPTION: CT ABD/PELVIS ORAL ONLY COMPLETED DATE/TIME: 06/15/2017 1:41 pm REASON FOR STUDY: INFECTION FOLLOWING A PROCEDURE T81.4XXA INFECTION FOLLOWING A PROCEDURE, INITIAL ENCOUNTER R10.9 UNSPECIFIED ABDOMINAL PAIN COMPARISON: CT abdomen pelvis 04/13/2017 TECHNIQUE: CT scan of the abdomen and pelvis performed without intravenous contrast. The patient drank oral contrast. Images reviewed with lung, soft tissue, and bone windows. Reconstructed coronal and sagittal MPR imag es reviewed. All images stored on PACS. All CT scanners at this facility use dose modulation, iterative reconstruction, and/or weight based d osing when appropriate to reduce radiation dose to as low as reasonably achievable (ALARA). [facility]: Dose Right [facility]: CareDose [facility]: Dose Right [facility]: Teradose 4D [facility]: [employer] RADIATION DOSE: CT Rad equipment meets quality standard of care and radiation dose reduction techniq ues were employed. CTDIvol: 10.0 mGy. DLP: 572 mGy-cm.mGy. LIMITATIONS: None. FINDINGS: Patient is post ventral hernia repair. There is intact mesh along the peritoneal surface of the anterior abdominal wall. No hernia is seen on today's study. In the right lower quadrant anterior abdominal wall fat, there is diffuse inflammation and stranding, and an ill-defined pocket with an air-fluid level measuring about 8 x 4 cm in size with an overlying bandage. This likely represents a superficial abdominal wall abscess. Patient drank oral contrast. There is no CT evidence of leakage of oral contrast from the gut lumen, and no evidence of bowel obstruction. There is no oral contrast tracking from bowel loops into the right lower quadrant anterior abdominal wall. This report was called to Dr. Raymundo. LOWER CHEST: No significant findings. No nodules or infiltrates. NON-CONTRASTED LIVER, SPLEEN, ADRENALS: Evaluation limited by lack of IV contrast. No identified sign ificant masses. PANCREAS: No masses. No peripancreatic inflammatory changes. GALLBLADDER: No identified stones by CT criteria. No inflammatory changes to suggest cholecystitis. RIGHT KIDNEY AND URETER: No suspicious masses. Assessment limited by lack of IV contrast. No signif icant calcifications. No hydronephrosis or hydroureter. LEFT KIDNEY AND URETER: No suspicious masses. Assessment limited by lack of IV contrast. No signifi cant calcifications. No hydronephrosis or hydroureter. AORTA AND RETROPERITONEUM: No aneurysm. No retroperitoneal masses or adenopathy. BOWEL AND PERITONEAL CAVITY: No obvious masses or inflammatory changes. No free fluid. APPENDIX: Normal. PELVIS, BLADDER, AND ABDOMINAL WALL:Anterior abdominal wall findings as above. No free pelvic fluid. No pelvic adenopathy. Post hysterectomy. Rectum, bladder unremarkable. BONES: No significant findings. OTHER: No other significant finding. IMPRESSION: Superficial abscess right lower quadrant anterior abdominal wall. Intact ventral hernia repair. No CT evidence of bowel obstruction. No extravasation of oral contrast identified. COMMENT: Quality ID # [id number]: Final reports with documentation of one or more dose reduction techniques (e.g., Automated exposure control, adjustment of the mA and/or kV according to patient size, use of iterative reconstruction technique) TECHNICAL DOCUMENTATION: JOB ID: [id number] [employer]- All Rights Reserved
[2017-06-15 15:46] LABS: HEMATOCRIT 23.5 % (36.0-47.0); MEAN CORPUSCULAR HEMOGLOBIN 18.8 pg (27.0-33.4); MEAN CORPUSCULAR HGB CONC 30.9 g/dL (32.0-36.0); PLATELET COUNT 451 10^3/uL (150-450); RED BLOOD COUNT 3.87 10^6/uL (3.72-5.28); RED CELL DISTRIBUTION WIDTH 15.7 % (11.5-14.0); WHITE BLOOD COUNT 13.6 10^3/uL (4.0-10.5)
[2017-06-15] MEDS ORDERED: PROPOFOL INJ 200 MG/20 ML VIAL IV ONE (15:47)
[2017-06-15] MEDS ORDERED: MIDAZOLAM 2 MG/2 ML INJ ONE (15:47)
[2017-06-15] MEDS ORDERED: ACETAMINOPHEN 100 ML IV ONE (15:47)
[2017-06-15] MEDS ORDERED: FENTANYL CITRATE INJ/PF 100 MCG/2 ML AMPUL ONE (15:47)
[2017-06-15] MEDS ORDERED: LIDOCAINE 1% INJ-PF (10 MG/ML) 30 ML SDV ONE (15:51)
[2017-06-15] MEDS ORDERED: BUPIVACAINE HCL 0.25 % INJ/PF (2.5 MG/1 ML) 30 ML VIAL ONE (15:51)
[2017-06-15] MEDS ORDERED: LIDOCAINE 0.5% INJ-PF (5 MG/ML) 50 ML SDV ONE (15:52)
[2017-06-15 15:56] LABS: MEAN CORPUSCULAR VOLUME 61 fl (80-97)
[2017-06-15 15:57] LABS: ANION GAP 15 (5-19); BLOOD UREA NITROGEN 37 mg/dL (7-20); CALCIUM 9.5 mg/dL (8.4-10.2); CARBON DIOXIDE 17 mmol/L (22-30); CHLORIDE 105 mmol/L (98-107); GLUCOSE 174 mg/dL (75-110); POTASSIUM 4.9 mmol/L (3.6-5.0); SODIUM 136.7 mmol/L (137-145)
--- NOTE | 2017-06-15 15:59 | PDOC H&P ---
History of Present Illness Admission Date/PCP: 06/15/17 15:03 DORIS HUANG PA-C History of Present Illness: TAJ PENN is a 62 year old female, history of diabetes mellitus, 2 months status post exploratory laparotomy, lysis of adhesions, small bowel reduction, closure of abdominal wall hernia with polypropylene mesh lateral abdominal wall release who was admitted through [facility] to [facility] because of feculent smelling drainage for her abdominal wall. The patient has had a fluid-filled collection involving her abdominal wall subcutaneous space on the right side for several weeks. This was felt to be secondary to liquefied hematoma. She has not been seen recently in the office. When she presented to also surgical today she appeared sickly, with constitutional symptoms of weight loss decreased appetite, tenderness on the abdominal wall and feculent drainage emanating through the skin. Surgery was involved, the patient was admitted directly to the hospital for definitive management. She underwent CT scan of the abdomen and pelvis this afternoon with oral contrast which showed air-fluid collection in the subcutaneous space, without involvement of the bowel wall fascia. The viscera appear intact without evidence of small bowel obstruction, fistula leak etc. Therefore the infection is felt to be contained to the superficial abdominal wall at this time. Past Medical History Cardiac Medical History: Reports: Hyperlipidema, Hypertension Denies: Coronary Artery Disease, Myocardial Infarction Pulmonary Medical History: Denies: Asthma, Bronchitis, Chronic Obstructive Pulmonary Disease (COPD), Pneumonia, Tuberculosis Neurological Medical History: Denies: Seizures Endocrine Medical History: Reports: Diabetes Mellitus Type 2 GI Medical History: Reports: Gastroesophageal Reflux Disease, Hiatal Hernia Musculoskeltal Medical History: Denies: Arthritis Hematology: Denies: Anemia Past Surgical History Past Surgical History: Reports: Section, Herniorrhaphy, Hysterectomy Denies: Pacemaker Social History Smoking Status: Never Smoker Frequency of Alcohol Use: None Hx Recreational Drug Use: No Drugs: None Hx Prescription Drug Abuse: No Family History Family History: DM, Hypertension Parental Family History Reviewed: Yes Children Family History Reviewed: Yes Sibling(s) Family History Reviewed.: Yes Medication/Allergy Home Medications: Cholecalciferol (Vitamin D3) [Vitamin D3 50,000 unit Capsule] 50,000 unit PO METZ@ 1000 01/09/12 Metformin HCl [Glucophage Xr] 750 mg PO QHS 01/09/12 Potassium Chloride [Klor-Con 10 Meq Tablet.sa] 15 meq PO DAILY 01/09/12 Cyanocobalamin (Vitamin B-12) [Vitamin B-12 1000 mcg Tablet] 1,000 mcg PO DAILY 04/14/17 Ferrous Sulfate [Iron] 325 mg PO TID 04/14/17 Loratadine [Claritin 10 mg Tablet] 10 mg PO DAILY 04/14/17 Pantoprazole Sodium [Protonix] 40 mg PO DAILY 04/14/17 Sitagliptin Phosphate [Januvia 50 mg Tablet] 100 mg PO DAILY 04/14/17 Telmisartan [Micardis 80 mg Tablet] 80 mg PO DAILY 04/14/17 Tramadol HCl [Ultram 50 mg Tablet] 50 mg PO Q8 04/14/17 Atenolol [Tenormin 50 mg Tablet] 100 mg PO DAILY tablet 04/17/17 Losartan Potassium [Cozaar 50 mg Tablet] 100 mg PO QHS tablet 04/17/17 Allergies/Adverse Reactions: No Known Allergies Allergy (Verified 01/09/12 17:48) Physical Exam Vital Signs: Temp Pulse Resp BP Pulse Ox 98.6 F 103 H 16 100/61 100 06/15/17 15:38 06/15/17 15:38 06/15/17 15:38 06/15/17 15:38 06/15/17 15:38 Intake & Output 06/14/17 06/15/17 06/16/17 06:59 06:59 06:59 Intake Total 0 Output Total 25 Balance -25 Weight 96.62 kg General appearance: PRESENT: mild distress, other - Patient is obviously lost weight perhaps up to 50 pounds by her report of the last 2 months Head exam: PRESENT: normocephalic Eye exam: PRESENT: EOMI Mouth exam: PRESENT: dry mucosa Neck exam: PRESENT: full ROM Respiratory exam: PRESENT: decreased breath sounds Cardiovascular exam: PRESENT: RRR Pulses: PRESENT: normal carotid pulses, normal dorsalis pedis pul GI/Abdominal exam: PRESENT: other - Appliance placed on right lower quadrant abdominal wall spontaneous draining site with purulent material in the bag Extremities exam: PRESENT: full ROM Neurological exam: PRESENT: alert, altered, awake, oriented to person, oriented to place Psychiatric exam: PRESENT: appropriate affect Skin exam: PRESENT: intact Results Impressions: Abdomen/Pelvis CT 06/15/17 11:37 IMPRESSION: Superficial abscess right lower quadrant anterior abdominal wall. Intact ventral hernia repair. No CT evidence of bowel obstruction. No extravasation of oral contrast identified. Assessment & Plan - Diagnosis (1) Hyperlipidemia associated with type 2 diabetes mellitus Is this a current diagnosis for this admission?: Yes (2) Abdominal wall abscess at site of surgical wound Is this a current diagnosis for this admission?: Yes Plan: Patient is 2 months status post abdominal wall reconstruction with mesh in the intraperitoneal position, partial component separation and closure of fascia with drain placement, postoperative seroma, now infected with abdominal wall abscess spontaneously draining Plan: 1. We will take patient to the operating room after fluid hydration resuscitation for operative drainage debridement drain placement possible VAC placement. 2. We will manage diabetes mellitus with the assistance of the medical care team. 3. Patient's hospital stay may be several days. - Time Time Spent: 50 to 70 Minutes Critical Time spent with patient: 15-24 minutes Medications reviewed and adjusted accordingly: Yes Anticipated discharge: Home - Inpatient Certification Based on my medical assessment, after consideration of the patient's comorbidities, presenting symptoms, or acuity I expect that the services needed warrant INPATIENT care.: Yes I certify that my determination is in accordance with my understanding of Medicare's requirements for reasonable and necessary INPATIENT services [42 CFR 412.3e].: Yes Medical Necessity: Need For IV Fluids, Need for Pain Control, Need for IV Antibiotics, Need for Surgery
[2017-06-15 16:01] LABS: HEMOGLOBIN 7.3 g/dL (12.0-15.5)
[2017-06-15] MEDS ORDERED: ATENOLOL 50 MG TABLET PO ONE (16:30)
[2017-06-15] MEDS ORDERED: AMPICILLIN SODIUM/SULBACTAM NA 3 GM in NORMAL SALINE 100 ML IV ONE (16:30)
[2017-06-15] MEDS ORDERED: MORPHINE SULFATE 10 MG/ML INJ ONE (17:07)
[2017-06-15] MEDS ORDERED: MEPERIDINE HCL/PF INJ 25 MG/1 ML DISP.SYRIN IV PRN (17:15)
[2017-06-15] MEDS ORDERED: MORPHINE SULFATE 10 MG/ML INJ IV PRN (17:15)
[2017-06-15] MEDS ORDERED: OXYCODONE-ACETAMINOPHEN 5-325 MG TABLET PO PRN ×2 (17:15)
[2017-06-15] MEDS ORDERED: FENTANYL CITRATE INJ/PF 100 MCG/2 ML AMPUL IV PRN ×3 (17:15)
[2017-06-15] MEDS ORDERED: DIPHENHYDRAMINE HCL 50 MG/ML VIAL IV PRN (17:15)
[2017-06-15] MEDS ORDERED: PROMETHAZINE HCL INJ 25 MG/1 ML VIAL IV PRN ×2 (17:15)
--- NOTE | 2017-06-15 17:35 | Operative Report ---
Operative Report DATE OF SURGERY: 06/15/17 PREOPERATIVE DIAGNOSIS: 1. Abdominal wall abscess. 2. Status post abdominal wall reconstruction with partial component separation, insertion of intra- peritoneal DualMesh POSTOPERATIVE DIAGNOSIS: Same with extensive right-sided abdominal wall infection OPERATION: Extensive debridement of cutaneous tissue, limited skin debridement of right sided abdominal wall infection SURGEON: ROSA DEL VALLE ANESTHESIA: GA TISSUE REMOVED OR ALTERED: Skin, nonviable subcutaneous tissue COMPLICATIONS: None ESTIMATED BLOOD LOSS: 150 cc INTRAOPERATIVE FINDINGS: See below PROCEDURE: The patient was taken in the preop holding area the main operating room where general anesthesia was induced. A second peripheral IV access was established by Dr. Gruber. The abdomen was exposed, Hendrickson catheter inserted. There is a previously placed ostomy appliance over the spontaneous Tan draining site in the right lower quadrant of the abdominal wall. Underlying hair was clipped. The ostomy appliance was removed, the abdominal wall prepped and draped sterile fashion. Surgical plan and surgical timeout conducted. The findings are significant for a swollen, mass right side abdominal wall infection. Foul-smelling purulent material draining from the right lower quadrant. We open this site by extending the whole by approximately 3 x 4 cm in elliptical fashion excising the original training site. This gave us access to the subcutaneous infection which was extensive extending to the patient's midline, down to the pelvic region inferiorly, and up towards the subcostal area periodically and laterally. Cultures were sent for Gram stain and sensitivity. Blunt dissection was used to break up as much of the loculations and some of the nonviable fat was excised. However venous bleeding was brisk and so this limited our exam of true subcutaneous digital debridement. Cautery was used to control the bleeding. We irrigated the large irregular subcutaneous cavity with multiple liters of saline. There was no indication to debride any more scan as the skin was viable. Furthermore the infection appeared to be contained to the subcutaneous space; in the mid abdomen mid field there was a depression of the infection going towards the abdominal wall proper, however she was to irregular due to inflammation to determine if there was violation of the peritoneal cavity. Clinically the infection appeared not to penetrate into the abdominal cavity. A 2 counter incisions on the patient's abdominal wall one in the right subcostal area and one in the lower mid quadrant. 2 large Aracelis drains were placed through the initial debridement excisional site and tied in a loop fashion. Wounds irrigated out with saline, bleeding was felt to be satisfactorily controlled with cautery, and all wounds packed vigorously with iodine-soaked Kerlix packing. Patient taught procedure well. She remained hemodynamically stable. Blood transfusions were ordered due to the patient's chronic anemia however no transfusions were initiated during the operation. She was felt to be hemodynamically stable, and breathing on her own, therefore suitable for extubation. Recommendations will be to monitor in the intensive care unit, reinspect wounds tomorrow possibly take her back to the operating room for second look, possible additional debridement.
[2017-06-15] MEDS: FENTANYL CITRATE INJ/PF 100 MCG/2 ML AMPUL ONE ×2 (17:54→18:00)
--- NOTE | 2017-06-15 18:51 | EKG REPORT ---
SEVERITY:- ABNORMAL ECG - SINUS RHYTHM RIGHT BUNDLE BRANCH BLOCK : Confirmed by: Herbert Hilliard MD 15-Jun-2017 18:50:18
[2017-06-15] MEDS ORDERED: DEXTROSE 40% GEL 15 GM TUBE PO PRN ×2 (19:44)
[2017-06-15] MEDS ORDERED: DEXTROSE 50%-WATER 25 GM/50 ML DISP.SYRIN IV PRN ×2 (19:44)
[2017-06-15] MEDS ORDERED: GLUCAGON,HUMAN RECOMB 1 MG INJ IM PRN (19:44)
[2017-06-15] MEDS ORDERED: INSULIN LISPRO 100 UNIT/ML 3 ML VIAL SUBCUT PRN (19:44)
[2017-06-15] MEDS ORDERED: PIPERACILLIN/TAZOBACTAM 3.375 GM VIAL IV SCH (22:00)
[2017-06-15] MEDS: PIPERACILLIN SODIUM/TAZOBACTAM 3.375 GM in NORMAL SALINE 100 ML IV SCH (22:38)
[2017-06-15] MEDS: NORMAL SALINE 1000 ML 1,000 ML IV PRN (22:38)
[2017-06-15] MEDS: HYDROMORPHONE HCL INJ/PF 2 MG/ML AMPULE IV PRN (22:38)
[2017-06-16] MEDS: HYDROMORPHONE HCL INJ/PF 2 MG/ML AMPULE IV PRN ×2 (04:16→10:41)
[2017-06-16] MEDS: NORMAL SALINE 1000 ML 1,000 ML IV PRN (06:11)
[2017-06-16] MEDS: PIPERACILLIN SODIUM/TAZOBACTAM 3.375 GM in NORMAL SALINE 100 ML IV SCH ×3 (06:11→22:44)
[2017-06-16 07:07] LABS: ANION GAP 10 (5-19); BLOOD UREA NITROGEN 31 mg/dL (7-20); CALCIUM 8.7 mg/dL (8.4-10.2); CARBON DIOXIDE 19 mmol/L (22-30); CHLORIDE 110 mmol/L (98-107); GLUCOSE 125 mg/dL (75-110); POTASSIUM 4.5 mmol/L (3.6-5.0); SODIUM 139.4 mmol/L (137-145)
[2017-06-16 07:19] LABS: ABSOLUTE BASOPHILS # (AUTO) 0.1 10^3/uL (0.0-0.2); ABSOLUTE EOSINOPHILS # (AUTO) 0.1 10^3/uL (0.0-0.6); ABSOLUTE LYMPHOCYTES (AUTO) 1.1 10^3/uL (0.5-4.7); ABSOLUTE MONOCYTES (AUTO) 1.5 10^3/uL (0.1-1.4); ABSOLUTE NEUT (AUTO) 10.4 10^3/uL (1.7-8.2); BASOPHILS % (AUTO) 0.5 % (0-2); HEMATOCRIT 26.9 % (36.0-47.0); HEMOGLOBIN 8.4 g/dL (12.0-15.5); LYMPHOCYTES % (AUTO) 8.3 % (13-45); MEAN CORPUSCULAR HEMOGLOBIN 20.6 pg (27.0-33.4); MEAN CORPUSCULAR HGB CONC 31.1 g/dL (32.0-36.0); MONOCYTES % (AUTO) 11.3 % (3-13); PLATELET COUNT 322 10^3/uL (150-450); RED BLOOD COUNT 4.06 10^6/uL (3.72-5.28); RED CELL DISTRIBUTION WIDTH 18.5 % (11.5-14.0); SEGMENTED NEUTROPHILS % (AUTO) 78.9 % (42-78); TOTAL CELLS COUNTED % (AUTO) 100 %; WHITE BLOOD COUNT 13.2 10^3/uL (4.0-10.5)
[2017-06-16 07:24] LABS: MEAN CORPUSCULAR VOLUME 66 fl (80-97)
[2017-06-16] MEDS: KETOROLAC TROMETHAMINE INJ/PF 30 MG/1 ML SDV IV PRN ×2 (07:29→20:17)
--- NOTE | 2017-06-16 10:16 | PDOC PROGRESS REPORT ---
Subjective Progress Note for:: 06/16/17 Reason For Visit: ABDOMINAL WALL SEPSIS Physical Exam Vital Signs: Temp Pulse Resp BP Pulse Ox 98.3 F 83 19 110/61 99 06/16/17 07:45 06/16/17 08:00 06/16/17 07:45 06/16/17 07:45 06/16/17 07:45 Intake & Output 06/15/17 06/16/17 06/17/17 06:59 06:59 06:59 Intake Total 4986 720 Output Total 1625 60 Balance 3361 660 Weight 101.9 kg GI/Abdominal exam: PRESENT: other - wounds irrigated , clean, dressings applied Results Laboratory Results: 06/16/17 06:46 06/16/17 06:46 06/15/17 06/15/17 06/15/17 15:25 15:25 16:25 WBC 13.6 H RBC 3.87 Hgb 7.3 L Hct 23.5 L MCV 61 L MCH 18.8 L MCHC 30.9 L RDW 15.7 H Plt Count 451 H Seg Neutrophils % Lymphocytes % Monocytes % Eosinophils % Basophils % Absolute Neutrophils Absolute Lymphocytes Absolute Monocytes Absolute Eosinophils Absolute Basophils Sodium 136.7 L Potassium 4.9 Chloride 105 Carbon Dioxide 17 L Anion Gap 15 BUN 37 H Creatinine 2.03 H Est GFR ( Amer) 30 L Est GFR (Non-Af Amer) 25 L Glucose 174 H Calcium 9.5 Blood Type B POSITIVE Antibody Screen NEGATIVE 06/16/17 06/16/17 06:46 06:46 WBC 13.2 H RBC 4.06 Hgb 8.4 L Hct 26.9 L MCV 66 L D MCH 20.6 L MCHC 31.1 L RDW 18.5 H Plt Count 322 Seg Neutrophils % 78.9 H Lymphocytes % 8.3 L Monocytes % 11.3 Eosinophils % 1.0 Basophils % 0.5 Absolute Neutrophils 10.4 H Absolute Lymphocytes 1.1 Absolute Monocytes 1.5 H Absolute Eosinophils 0.1 Absolute Basophils 0.1 Sodium 139.4 Potassium 4.5 Chloride 110 H Carbon Dioxide 19 L Anion Gap 10 BUN 31 H Creatinine 1.48 H Est GFR ( Amer) 44 L Est GFR (Non-Af Amer) 36 L Glucose 125 H Calcium 8.7 Blood Type Antibody Screen Impressions: Abdomen/Pelvis CT 06/15/17 11:37 IMPRESSION: Superficial abscess right lower quadrant anterior abdominal wall. Intact ventral hernia repair. No CT evidence of bowel obstruction. No extravasation of oral contrast identified. Assessment & Plan - Plan Summary Plan Summary: Stable transfer to floor Continue wound care twice daily dressings
--- NOTE | 2017-06-16 11:30 | PDOC PROGRESS REPORT ---
Subjective Progress Note for:: 06/16/17 Subjective:: Follow-up visit for medical management of diabetes HPI: Ms. Mesa is a 62-year-old female presented to surgical clinic in follow- up after Independence-Rene mesh placed April 13 of this year after exploratory laparotomy and lysis of adhesions with small bowel reduction and closure of an abdominal wall hernia. He followed up in the clinic due to feculent material oozing from her abdominal wall along the surgical site. CT scan of the abdomen and pelvis showed an air-fluid collection in the subcutaneous space without involvement of the bowel wall fascia or viscera and she was admitted to the hospital for surgical I&D of superficial abdominal wall abscess. Surgery is managing her case but she has underlying diabetes and we were asked to assist with her management. Patient is rested comfortably through the course of the night and still n.p.o. she states her pain is well controlled on current regimen. She denies chest pain, palpitations, fever, chills, nausea, vomiting, dizziness or headache. ROS: All systems reviewed, see above, remaining systems negative. Reason For Visit: ABDOMINAL WALL SEPSIS; MEDICAL MANAGEMENT OF DM Physical Exam Vital Signs: Temp Pulse Resp BP Pulse Ox 98.3 F 83 22 H 118/55 L 96 06/16/17 07:45 06/16/17 08:00 06/16/17 10:34 06/16/17 10:34 06/16/17 10:34 Intake & Output 06/15/17 06/16/17 06/17/17 06:59 06:59 06:59 Intake Total 4986 720 Output Total 1625 60 Balance 3361 660 Weight 101.9 kg General appearance: PRESENT: no acute distress, obese, well-developed, well- nourished Head exam: PRESENT: atraumatic, normocephalic Eye exam: PRESENT: EOMI Mouth exam: PRESENT: moist Neck exam: PRESENT: full ROM. ABSENT: tracheal deviation Respiratory exam: PRESENT: clear to auscultation danielle. ABSENT: accessory muscle use, tachypnea Cardiovascular exam: PRESENT: RRR. ABSENT: systolic murmur GI/Abdominal exam: PRESENT: hypoactive bowel sounds, soft, tenderness - Diffuse ; abdominal binder in place; thick heavy bandage in place with serosanguineous fluid evident. Extremities exam: ABSENT: pedal edema Musculoskeletal exam: PRESENT: full ROM Neurological exam: PRESENT: alert, awake, oriented to person, oriented to place , oriented to time, oriented to situation Psychiatric exam: PRESENT: appropriate affect, normal mood Skin exam: PRESENT: dry, warm Results Laboratory Results: 06/16/17 06:46 06/16/17 06:46 06/15/17 06/15/17 06/15/17 15:25 15:25 16:25 WBC 13.6 H RBC 3.87 Hgb 7.3 L Hct 23.5 L MCV 61 L MCH 18.8 L MCHC 30.9 L RDW 15.7 H Plt Count 451 H Seg Neutrophils % Lymphocytes % Monocytes % Eosinophils % Basophils % Absolute Neutrophils Absolute Lymphocytes Absolute Monocytes Absolute Eosinophils Absolute Basophils Sodium 136.7 L Potassium 4.9 Chloride 105 Carbon Dioxide 17 L Anion Gap 15 BUN 37 H Creatinine 2.03 H Est GFR ( Amer) 30 L Est GFR (Non-Af Amer) 25 L Glucose 174 H Calcium 9.5 Blood Type B POSITIVE Antibody Screen NEGATIVE 06/16/17 06/16/17 06:46 06:46 WBC 13.2 H RBC 4.06 Hgb 8.4 L Hct 26.9 L MCV 66 L D MCH 20.6 L MCHC 31.1 L RDW 18.5 H Plt Count 322 Seg Neutrophils % 78.9 H Lymphocytes % 8.3 L Monocytes % 11.3 Eosinophils % 1.0 Basophils % 0.5 Absolute Neutrophils 10.4 H Absolute Lymphocytes 1.1 Absolute Monocytes 1.5 H Absolute Eosinophils 0.1 Absolute Basophils 0.1 Sodium 139.4 Potassium 4.5 Chloride 110 H Carbon Dioxide 19 L Anion Gap 10 BUN 31 H Creatinine 1.48 H Est GFR ( Amer) 44 L Est GFR (Non-Af Amer) 36 L Glucose 125 H Calcium 8.7 Blood Type Antibody Screen Impressions: Abdomen/Pelvis CT 06/15/17 11:37 IMPRESSION: Superficial abscess right lower quadrant anterior abdominal wall. Intact ventral hernia repair. No CT evidence of bowel obstruction. No extravasation of oral contrast identified. Status: Imported from PACS Assessment & Plan - Diagnosis (1) Abdominal wall abscess at site of surgical wound Is this a current diagnosis for this admission?: Yes Plan: Wound care and antibiotics and IV fluids and oral intake per surgical team (2) Hypertension Qualifiers: Hypertension type: essential hypertension Qualified Code(s): I10 - Essential (primary) hypertension Is this a current diagnosis for this admission?: Yes Plan: Currently well-controlled. Beta-nadja on hold due to n.p.o. status. Reinitiate as hemodynamics will allow once cleared for oral intake. (3) Type II diabetes mellitus Qualifiers: Diabetes mellitus complication status: without complication Diabetes mellitus mcfp insulin use: without mcfp use Qualified Code(s): E11.9 - Type 2 diabetes mellitus without complications Is this a current diagnosis for this admission?: Yes Plan: Change to before meals and at bedtime coverage with sliding scale insulin. Home oral regimen currently on hold. Target blood sugars less than 200 in the setting of infection - Time Time Spent with patient: 25-34 minutes Medications reviewed and adjusted accordingly: Yes
[2017-06-17 06:01] LABS: HEMATOCRIT 22.8 % (36.0-47.0); MEAN CORPUSCULAR HEMOGLOBIN 20.7 pg (27.0-33.4); MEAN CORPUSCULAR HGB CONC 31.9 g/dL (32.0-36.0); MEAN CORPUSCULAR VOLUME 65 fl (80-97); PLATELET COUNT 327 10^3/uL (150-450); RED BLOOD COUNT 3.51 10^6/uL (3.72-5.28); RED CELL DISTRIBUTION WIDTH 18.3 % (11.5-14.0); WHITE BLOOD COUNT 8.6 10^3/uL (4.0-10.5)
[2017-06-17] MEDS: PIPERACILLIN SODIUM/TAZOBACTAM 3.375 GM in NORMAL SALINE 100 ML IV SCH ×3 (06:06→21:28)
[2017-06-17] MEDS: NORMAL SALINE 1000 ML 1,000 ML IV PRN ×2 (06:06→13:49)
[2017-06-17 06:27] LABS: ANION GAP 10 (5-19); BLOOD UREA NITROGEN 18 mg/dL (7-20); CALCIUM 7.8 mg/dL (8.4-10.2); CARBON DIOXIDE 17 mmol/L (22-30); CHLORIDE 112 mmol/L (98-107); GLUCOSE 97 mg/dL (75-110); POTASSIUM 3.9 mmol/L (3.6-5.0); SODIUM 139.1 mmol/L (137-145)
[2017-06-17 07:30] LABS: HEMOGLOBIN 7.3 g/dL (12.0-15.5)
[2017-06-17] MEDS: KETOROLAC TROMETHAMINE INJ/PF 30 MG/1 ML SDV IV PRN ×2 (10:12→21:27)
--- NOTE | 2017-06-17 14:14 | PDOC PROGRESS REPORT ---
Subjective Progress Note for:: 06/17/17 Subjective:: feeling better Reason For Visit: ABDOMINAL WALL SEPSIS Physical Exam Vital Signs: Temp Pulse Resp BP Pulse Ox 98.4 F 99 16 134/73 H 100 06/17/17 11:43 06/17/17 11:43 06/17/17 11:43 06/17/17 11:43 06/17/17 11:43 Intake & Output 06/16/17 06/17/17 06/18/17 06:59 06:59 06:59 Intake Total 4986 1640 Output Total 1625 1350 Balance 3361 290 Weight 101.9 kg 102.9 kg GI/Abdominal exam: PRESENT: other - wounds much commercial cleaner with drainage less Results Laboratory Results: 06/17/17 05:03 06/17/17 05:03 06/15/17 06/17/17 06/17/17 16:25 05:03 05:03 WBC 8.6 RBC 3.51 L Hgb 7.3 L Hct 22.8 L MCV 65 L MCH 20.7 L MCHC 31.9 L RDW 18.3 H Plt Count 327 Sodium 139.1 Potassium 3.9 Chloride 112 H Carbon Dioxide 17 L Anion Gap 10 BUN 18 Creatinine 1.10 Est GFR ( Amer) > 60 Est GFR (Non-Af Amer) 51 L Glucose 97 Calcium 7.8 L Blood Type B POSITIVE Antibody Screen NEGATIVE Impressions: Abdomen/Pelvis CT 06/15/17 11:37 IMPRESSION: Superficial abscess right lower quadrant anterior abdominal wall. Intact ventral hernia repair. No CT evidence of bowel obstruction. No extravasation of oral contrast identified. Assessment & Plan - Plan Summary Plan Summary: Abdominal wounds better Continue wound care and IV ABX
[2017-06-17 15:15] LABS: HEMATOCRIT 21.8 % (36.0-47.0); MEAN CORPUSCULAR HEMOGLOBIN 21.2 pg (27.0-33.4); MEAN CORPUSCULAR HGB CONC 33.3 g/dL (32.0-36.0); MEAN CORPUSCULAR VOLUME 64 fl (80-97); PLATELET COUNT 323 10^3/uL (150-450); RED BLOOD COUNT 3.42 10^6/uL (3.72-5.28); RED CELL DISTRIBUTION WIDTH 18.3 % (11.5-14.0); WHITE BLOOD COUNT 8.3 10^3/uL (4.0-10.5)
[2017-06-17 15:38] LABS: HEMOGLOBIN 7.3 g/dL (12.0-15.5)
[2017-06-17] MEDS ORDERED: MAGNESIUM SULFATE 4 GM/100 ML RTUPB IV ONE ×2 (15:50→18:00)
--- NOTE | 2017-06-17 17:53 | PDOC PROGRESS REPORT ---
Subjective Progress Note for:: 06/17/17 Subjective:: The patient is a 62-year-old female who has a history of diabetes and hypertension. 2 months ago she had an exploratory laparotomy with lysis of adhesions, small bowel resection and closure of the abdominal wall with the polypropylene mesh and lateral abdominal wall release. She was admitted to this hospital through the outpatient surgical clinic due to feculent smelling drainage from her abdominal wall and was found to have a fluid -filled collection in the subcutaneous space of her abdominal wall on the right side for several weeks which was felt to be due to liquefied hematoma. CAT scan of the abdomen and pelvis done on admission with oral contrast showed air-fluid collection in the subcutaneous space without involvement of the bowel wall. The viscera appeared intact with no evidence of small bowel obstruction fistula or leak. She was started on treatment for superficial abdominal wall infection. On June 15 she underwent extensive debridement of subcutaneous tissue and nonviable skin. The infection did not appear to penetrate into the abdominal cavity. 2 large Rippey drains were placed through the initial debridement site. The hospitalist service was consulted for management of her diabetes. Home medications include Pantoprazole 40 mg daily Sitagliptin 100 mg daily Telmisartan 80 mg daily Tramadol 50 mg every 8 hours Atenolol 100 mg daily Losartan 100 mg at bedtime Metformin extended release 750 mg at bedtime Ferrous sulfate 3 times a day Loratadine 10 mg daily Potassium chloride 15 mEq daily B12 1000 mcg daily Vitamin D3 No complaints at present. She has not had a bowel movement but is passing flatus. No nausea or vomiting. Hendrickson was removed this morning. Reason For Visit: ABDOMINAL WALL SEPSIS Physical Exam Vital Signs: Temp Pulse Resp BP Pulse Ox 98.4 F 99 16 134/73 H 100 06/17/17 11:43 06/17/17 11:43 06/17/17 11:43 06/17/17 11:43 06/17/17 11:43 Intake & Output 06/16/17 06/17/17 06/18/17 06:59 06:59 06:59 Intake Total 4986 1156 Output Total 1625 1350 Balance 3361 290 Weight 101.9 kg 102.9 kg General appearance: PRESENT: no acute distress, cooperative Head exam: PRESENT: atraumatic, normocephalic Eye exam: PRESENT: EOMI Ear exam: PRESENT: normal external ear exam Mouth exam: PRESENT: moist Throat exam: ABSENT: tonsillar exudate Neck exam: ABSENT: tenderness, tracheal deviation Respiratory exam: PRESENT: clear to auscultation danielle. ABSENT: accessory muscle use Cardiovascular exam: PRESENT: RRR. ABSENT: systolic murmur GI/Abdominal exam: PRESENT: other - Abdominal binder in place. Rectal exam: PRESENT: deferred Neurological exam: PRESENT: alert, awake, oriented to person, oriented to place , oriented to time Psychiatric exam: PRESENT: appropriate affect Results Laboratory Results: 06/17/17 05:03 06/17/17 05:03 06/15/17 06/17/17 06/17/17 16:25 05:03 05:03 WBC 8.6 RBC 3.51 L Hgb 7.3 L Hct 22.8 L MCV 65 L MCH 20.7 L MCHC 31.9 L RDW 18.3 H Plt Count 327 Sodium 139.1 Potassium 3.9 Chloride 112 H Carbon Dioxide 17 L Anion Gap 10 BUN 18 Creatinine 1.10 Est GFR ( Amer) > 60 Est GFR (Non-Af Amer) 51 L Glucose 97 Calcium 7.8 L Blood Type B POSITIVE Antibody Screen NEGATIVE Impressions: Abdomen/Pelvis CT 06/15/17 11:37 IMPRESSION: Superficial abscess right lower quadrant anterior abdominal wall. Intact ventral hernia repair. No CT evidence of bowel obstruction. No extravasation of oral contrast identified. Assessment & Plan - Diagnosis (1) Abdominal wall abscess at site of surgical wound Is this a current diagnosis for this admission?: Yes Plan: Day 4 of Zosyn Wound cultures grew group B strep and gram-negative rods, identification pending. (2) Hyperlipidemia associated with type 2 diabetes mellitus Is this a current diagnosis for this admission?: Yes (3) Hypertension Qualifiers: Hypertension type: essential hypertension Qualified Code(s): I10 - Essential (primary) hypertension Is this a current diagnosis for this admission?: Yes Plan: We will resume p.o. medications once okay to take by mouth. (4) Type II diabetes mellitus Qualifiers: Diabetes mellitus complication status: without complication Diabetes mellitus correction insulin use: without correction use Qualified Code(s): E11.9 - Type 2 diabetes mellitus without complications Is this a current diagnosis for this admission?: Yes Plan: Oral hypoglycemic agents on hold. Continue sliding scale insulin. (5) Hypomagnesemia Is this a current diagnosis for this admission?: Yes Plan: 4 g of IV mag sulfate ordered. - Time Time Spent with patient: 25-34 minutes
[2017-06-18] MEDS: NORMAL SALINE 1000 ML 1,000 ML IV PRN ×2 (02:21→14:20)
[2017-06-18 05:56] LABS: ANION GAP 11 (5-19); BLOOD UREA NITROGEN 12 mg/dL (7-20); CALCIUM 8.4 mg/dL (8.4-10.2); CARBON DIOXIDE 16 mmol/L (22-30); CHLORIDE 115 mmol/L (98-107); GLUCOSE 94 mg/dL (75-110); PHOSPHORUS 4.7 mg/dL (2.5-4.5); POTASSIUM 3.9 mmol/L (3.6-5.0); SODIUM 141.9 mmol/L (137-145)
[2017-06-18] MEDS: PIPERACILLIN SODIUM/TAZOBACTAM 3.375 GM in NORMAL SALINE 100 ML IV SCH ×3 (06:59→21:50)
[2017-06-18] MEDS: KETOROLAC TROMETHAMINE INJ/PF 30 MG/1 ML SDV IV PRN ×2 (06:59→12:55)
[2017-06-18] MEDS ORDERED: DOCUSATE SODIUM 100 MG CAPSULE PO SCH (10:00)
[2017-06-18] MEDS ORDERED: (PENDING PHARMACY ID) (Telmisartan [Micardis 80 Mg Tablet] 80 MG) PO SCH (10:00)
[2017-06-18] MEDS: CYANOCOBALAMIN (VITAMIN B-12) 1,000 MCG TABLET PO SCH (10:16)
[2017-06-18] MEDS: FLUTICASONE NASAL SPRAY 50 MCG/SPRY 120 SPRAY/16 GM NASL SCH ×2 (10:17→18:59)
[2017-06-18] MEDS: LACTOBACILLUS ACIDOPHILUS 250 MG TAB PO SCH ×2 (10:17→18:58)
[2017-06-18] MEDS: ATENOLOL 50 MG TABLET PO SCH (10:17)
--- NOTE | 2017-06-18 11:48 | PDOC PROGRESS REPORT ---
Subjective Progress Note for:: 06/18/17 Subjective:: The patient is a 62-year-old female who has a history of diabetes and hypertension. 2 months ago she had an exploratory laparotomy with lysis of adhesions, small bowel resection and closure of the abdominal wall with the polypropylene mesh and lateral abdominal wall release. She was admitted to this hospital through the outpatient surgical clinic due to feculent smelling drainage from her abdominal wall and was found to have a fluid -filled collection in the subcutaneous space of her abdominal wall on the right side for several weeks which was felt to be due to liquefied hematoma. CAT scan of the abdomen and pelvis done on admission with oral contrast showed air-fluid collection in the subcutaneous space without involvement of the bowel wall. The viscera appeared intact with no evidence of small bowel obstruction fistula or leak. She was started on treatment for superficial abdominal wall infection. On June 15 she underwent extensive debridement of subcutaneous tissue and nonviable skin. The infection did not appear to penetrate into the abdominal cavity. 2 large [place] drains were placed through the initial debridement site. The hospitalist service was consulted for management of her diabetes. Home medications include Pantoprazole 40 mg daily Sitagliptin 100 mg daily Telmisartan 80 mg daily Tramadol 50 mg every 8 hours Atenolol 100 mg daily Losartan 100 mg at bedtime Metformin extended release 750 mg at bedtime Ferrous sulfate 3 times a day Loratadine 10 mg daily Potassium chloride 15 mEq daily B12 1000 mcg daily Vitamin D3 Feels better today. She had 2 bowel movements this morning. Tolerating her diet well. Today is day 4 of Zosyn, her wound cultures grew group B strep and Morganella. Reason For Visit: ABDOMINAL WALL SEPSIS Physical Exam Vital Signs: Temp Pulse Resp BP Pulse Ox 97.8 F 99 18 155/74 H 100 06/18/17 08:13 06/18/17 08:13 06/18/17 08:13 06/18/17 08:13 06/18/17 08:13 Intake & Output 06/17/17 06/18/17 06/19/17 06:59 06:59 06:59 Intake Total 1640 3309 Output Total 1350 1200 Balance 290 2109 Weight 102.9 kg 105.5 kg Additional comments: Middle-aged Afro-[place] female sitting up in her chair not in acute distress Lungs: Clear to auscultation bilaterally normal respiratory effort Cardiac: S1-S2 regular no peripheral edema no cyanosis or calf tenderness Abdomen: She has a large binder in place. Results Laboratory Results: 06/17/17 14:57 06/18/17 05:08 06/17/17 06/17/17 06/18/17 14:57 14:57 05:08 WBC 8.3 RBC 3.42 L Hgb 7.3 L Hct 21.8 L MCV 64 L MCH 21.2 L MCHC 33.3 RDW 18.3 H Plt Count 323 Sodium 141.9 Potassium 3.9 Chloride 115 H Carbon Dioxide 16 L Anion Gap 11 BUN 12 Creatinine 1.05 Est GFR ( Amer) > 60 Est GFR (Non-Af Amer) 53 L Glucose 94 Calcium 8.4 Phosphorus 4.7 H Magnesium 1.2 L* Impressions: Abdomen/Pelvis CT 06/15/17 11:37 IMPRESSION: Superficial abscess right lower quadrant anterior abdominal wall. Intact ventral hernia repair. No CT evidence of bowel obstruction. No extravasation of oral contrast identified. Assessment & Plan - Diagnosis (1) Abdominal wall abscess at site of surgical wound Is this a current diagnosis for this admission?: Yes Plan: Day 4 of Zosyn Continue dressing changes and management per surgical service. (2) Hyperlipidemia associated with type 2 diabetes mellitus Is this a current diagnosis for this admission?: Yes (3) Hypertension Qualifiers: Hypertension type: essential hypertension Qualified Code(s): I10 - Essential (primary) hypertension Is this a current diagnosis for this admission?: Yes Plan: Home medications restarted . (4) Type II diabetes mellitus Qualifiers: Diabetes mellitus complication status: without complication Diabetes mellitus adjunct faculty for medical terminology insulin use: without adjunct faculty for medical terminology use Qualified Code(s): E11.9 - Type 2 diabetes mellitus without complications Is this a current diagnosis for this admission?: Yes Plan: Oral hypoglycemic agents on hold. Continue sliding scale insulin. (5) Hypomagnesemia Is this a current diagnosis for this admission?: Yes Plan: Repleted. Continue to monitor. - Time Time Spent with patient: 25-34 minutes
[2017-06-18] MEDS ORDERED: LOSARTAN POTASSIUM 50 MG TABLET PO ONE (12:30)
[2017-06-18] MEDS: INSULIN LISPRO 100 UNIT/ML 3 ML VIAL SUBCUT SCH ×2 (12:44→17:16)
[2017-06-18] MEDS ORDERED: LIDOCAINE 2% INJ-PF (20 MG/ML) 2 ML AMPUL ONE (13:37)
[2017-06-18] MEDS ORDERED: METOCLOPRAMIDE HCL INJ/PF 10 MG/2 ML SDV ONE (13:37)
[2017-06-18] MEDS ORDERED: ONDANSETRON HCL INJ/PF 4 MG/2 ML SDV ONE (13:37)
[2017-06-18] MEDS ORDERED: SUCCINYLCHOLINE CHLORIDE INJ 200 MG/10 ML VIAL ONE (13:37)
[2017-06-18] MEDS ORDERED: FENTANYL CITRATE INJ/PF 100 MCG/2 ML AMPUL ONE ×2 (13:57→16:14)
[2017-06-18] MEDS ORDERED: PROPOFOL INJ 200 MG/20 ML VIAL IV ONE (13:58)
[2017-06-18] MEDS ORDERED: ACETAMINOPHEN 100 ML IV ONE (13:58)
[2017-06-18] MEDS ORDERED: MIDAZOLAM 2 MG/2 ML INJ ONE (13:58)
[2017-06-18] MEDS ORDERED: MORPHINE SULFATE 10 MG/ML INJ IV PRN (14:10)
[2017-06-18] MEDS ORDERED: PROMETHAZINE HCL INJ 25 MG/1 ML VIAL IV PRN ×2 (14:10)
[2017-06-18] MEDS ORDERED: ONDANSETRON HCL INJ/PF 4 MG/2 ML SDV IV PRN (14:10)
[2017-06-18] MEDS ORDERED: DIPHENHYDRAMINE HCL 50 MG/ML VIAL IV PRN (14:10)
[2017-06-18] MEDS ORDERED: OXYCODONE-ACETAMINOPHEN 5-325 MG TABLET PO PRN ×4 (14:10→20:15)
[2017-06-18] MEDS ORDERED: MEPERIDINE HCL/PF INJ 25 MG/1 ML DISP.SYRIN IV PRN (14:10)
[2017-06-18] MEDS ORDERED: FENTANYL CITRATE INJ/PF 100 MCG/2 ML AMPUL IV PRN ×2 (14:10)
[2017-06-18] MEDS ORDERED: BUPIVACAINE HCL 0.25 % INJ/PF (2.5 MG/1 ML) 30 ML VIAL ONE (14:10)
[2017-06-18 14:21] LABS: HEMATOCRIT 23.5 % (36.0-47.0); MEAN CORPUSCULAR HEMOGLOBIN 20.9 pg (27.0-33.4); MEAN CORPUSCULAR HGB CONC 32.5 g/dL (32.0-36.0); MEAN CORPUSCULAR VOLUME 64 fl (80-97); PLATELET COUNT 368 10^3/uL (150-450); RED BLOOD COUNT 3.65 10^6/uL (3.72-5.28); RED CELL DISTRIBUTION WIDTH 18.5 % (11.5-14.0); WHITE BLOOD COUNT 7.1 10^3/uL (4.0-10.5)
--- NOTE | 2017-06-18 14:34 | PDOC PROGRESS REPORT ---
Subjective Progress Note for:: 06/18/17 Reason For Visit: ABDOMINAL WALL SEPSIS Physical Exam Vital Signs: Temp Pulse Resp BP Pulse Ox 98.0 F 92 16 133/69 H 100 06/18/17 12:03 06/18/17 12:03 06/18/17 12:03 06/18/17 12:03 06/18/17 12:03 Intake & Output 06/17/17 06/18/17 06/19/17 06:59 06:59 06:59 Intake Total 1640 3309 Output Total 1350 1200 Balance 290 2109 Weight 102.9 kg 105.5 kg GI/Abdominal exam: PRESENT: other - Abdominal wound - increased drainage to day with necrotic looking tissue Results Laboratory Results: 06/18/17 05:08 06/17/17 06/17/17 06/18/17 14:57 14:57 05:08 WBC 8.3 RBC 3.42 L Hgb 7.3 L Hct 21.8 L MCV 64 L MCH 21.2 L MCHC 33.3 RDW 18.3 H Plt Count 323 Sodium 141.9 Potassium 3.9 Chloride 115 H Carbon Dioxide 16 L Anion Gap 11 BUN 12 Creatinine 1.05 Est GFR ( Amer) > 60 Est GFR (Non-Af Amer) 53 L Glucose 94 Calcium 8.4 Phosphorus 4.7 H Magnesium 1.2 L* Impressions: Abdomen/Pelvis CT 06/15/17 11:37 IMPRESSION: Superficial abscess right lower quadrant anterior abdominal wall. Intact ventral hernia repair. No CT evidence of bowel obstruction. No extravasation of oral contrast identified. Assessment & Plan - Plan Summary Plan Summary: Abdominal wound debridement today
[2017-06-18 14:46] LABS: HEMOGLOBIN 7.6 g/dL (12.0-15.5)
[2017-06-18] MEDS ORDERED: NORMAL SALINE 250 ML IV PRN (14:47)
--- NOTE | 2017-06-18 14:58 | PDOC PROGRESS REPORT ---
Subjective Reason For Visit: ABDOMINAL WALL SEPSIS Physical Exam Vital Signs: Temp Pulse Resp BP Pulse Ox 98.0 F 92 16 133/69 H 100 06/18/17 14:33 06/18/17 14:33 06/18/17 14:33 06/18/17 14:33 06/18/17 14:33 Intake & Output 06/17/17 06/18/17 06/19/17 06:59 06:59 06:59 Intake Total 1640 3309 Output Total 1350 1200 Balance 290 2109 Weight 102.9 kg 105.5 kg Results Laboratory Results: 06/18/17 14:03 06/18/17 05:08 06/17/17 06/17/17 06/18/17 14:57 14:57 05:08 WBC 8.3 RBC 3.42 L Hgb 7.3 L Hct 21.8 L MCV 64 L MCH 21.2 L MCHC 33.3 RDW 18.3 H Plt Count 323 Sodium 141.9 Potassium 3.9 Chloride 115 H Carbon Dioxide 16 L Anion Gap 11 BUN 12 Creatinine 1.05 Est GFR ( Amer) > 60 Est GFR (Non-Af Amer) 53 L Glucose 94 Calcium 8.4 Phosphorus 4.7 H Magnesium 1.2 L* 06/18/17 14:03 WBC 7.1 RBC 3.65 L Hgb 7.6 L Hct 23.5 L MCV 64 L MCH 20.9 L MCHC 32.5 RDW 18.5 H Plt Count 368 Sodium Potassium Chloride Carbon Dioxide Anion Gap BUN Creatinine Est GFR ( Amer) Est GFR (Non-Af Amer) Glucose Calcium Phosphorus Magnesium Impressions: Abdomen/Pelvis CT 06/15/17 11:37 IMPRESSION: Superficial abscess right lower quadrant anterior abdominal wall. Intact ventral hernia repair. No CT evidence of bowel obstruction. No extravasation of oral contrast identified. Assessment & Plan - Plan Summary Plan Summary: Patient has h/o Anemia, admitted with HG AROUND 8 GM, now 7.3 will trasfuse her 2 units Her last colonoscopy several years ago d/w patient - recommend - colonoscopy and EGD Will consult GI while she is here , so work up can be planned better .
[2017-06-18] MEDS ORDERED: HYDROMORPHONE HCL INJ/PF 2 MG/ML AMPULE IV PRN (16:06)
[2017-06-18] MEDS: FENTANYL CITRATE INJ/PF 100 MCG/2 ML AMPUL IV PRN ×2 (16:15→16:20)
[2017-06-18] MEDS ORDERED: DOCUSATE SODIUM 100 MG CAPSULE PO ONE (17:00)
[2017-06-18] MEDS: HYDROMORPHONE HCL INJ/PF 2 MG/ML AMPULE IV PRN (17:19)
--- NOTE | 2017-06-18 18:08 | OPERATIVE REPORT E ---
Operative Report NAME: TAJ PENN : 1955 AGE: 62Y DATE OF SURGERY: 06/18/2017 ROOM: 408 PREOPERATIVE DIAGNOSIS: Infected abdominal wall abscess, abdominal wall necrotic tissue. POSTOPERATIVE DIAGNOSIS: Infected abdominal wall abscess, abdominal wall necrotic tissue. OPERATION: Excisional debridement of abdominal wall tissue up to fascia along with an abdominal wall washout. SURGEON: KIAN KHAN M.D. ANESTHESIA: General. ESTIMATED BLOOD LOSS: Less than 30 to 40 mL. TISSUE REMOVED OR ALTERED: Specimens: Abdominal wall necrotic tissue HISTORY AND INDICATION: The patient had almost 3 months ago a large incisional hernia repair, and she was admitted with abdominal wall abscess and necrotic tissue which was initially drained and debrided by Dr. Raymundo and repeat examinations over the last 2 days. Today, she was found to have more drainage, more necrotic-like wound tissue that needed to be re-debrided and drained. DESCRIPTION OF PROCEDURE: After adequate anesthesia, in the supine position, the abdomen was cleaned and draped as a sterile field. Then, the abdominal wall was explored, mostly on the right-sided abdominal wall. The subcutaneous tissue up to mid-fascial level, there was some necrotic tissue, all debrided by using sharp scissors and also by curette, and the abdominal wall necrotic tissue was then sent for cultures. Then, the entire abdominal wall wound, which was about 15 to 20 cm wide, was copiously irrigated and suctioned out, hemostasis secured, and dressings applied with a packing. The patient tolerated the procedure very well, sent to recovery room in stable condition. DICTATING PHYSICIAN: KIAN KHAN M.D. [id number] Y#: [id number] ID: [id number] JOB#: [id number] ACCT: [id number] cc:KIAN KHAN M.D. >
[2017-06-19] MEDS: PIPERACILLIN SODIUM/TAZOBACTAM 3.375 GM in NORMAL SALINE 100 ML IV SCH ×3 (05:45→21:51)
[2017-06-19] MEDS: LANSOPRAZOLE 30 MG TAB.RAP.DR PO SCH (05:46)
[2017-06-19 05:48] LABS: HEMATOCRIT 26.9 % (36.0-47.0); HEMOGLOBIN 8.6 g/dL (12.0-15.5); MEAN CORPUSCULAR HEMOGLOBIN 22.4 pg (27.0-33.4); MEAN CORPUSCULAR HGB CONC 32.1 g/dL (32.0-36.0); PLATELET COUNT 302 10^3/uL (150-450); RED BLOOD COUNT 3.85 10^6/uL (3.72-5.28); RED CELL DISTRIBUTION WIDTH 23.1 % (11.5-14.0); WHITE BLOOD COUNT 6.3 10^3/uL (4.0-10.5)
[2017-06-19 05:51] LABS: ALANINE AMINOTRANSFERASE 25 U/L (9-52); ALBUMIN 2.1 g/dL (3.5-5.0); ALKALINE PHOSPHATASE 77 U/L (38-126); ANION GAP 8 (5-19); ASPARTATE AMINO TRANSFERASE 9 U/L (14-36); BILIRUBIN,DIRECT 0.2 mg/dL (0.0-0.4); BILIRUBIN,TOTAL 0.4 mg/dL (0.2-1.3); BLOOD UREA NITROGEN 10 mg/dL (7-20); CALCIUM 7.9 mg/dL (8.4-10.2); CARBON DIOXIDE 17 mmol/L (22-30); CHLORIDE 115 mmol/L (98-107); GLUCOSE 93 mg/dL (75-110); PHOSPHORUS 4.9 mg/dL (2.5-4.5); POTASSIUM 3.9 mmol/L (3.6-5.0); SODIUM 140.4 mmol/L (137-145); TOTAL PROTEIN 5.4 g/dL (6.3-8.2)
[2017-06-19 05:54] LABS: MEAN CORPUSCULAR VOLUME 70 fl (80-97)
[2017-06-19] MEDS: INSULIN LISPRO 100 UNIT/ML 3 ML VIAL SUBCUT SCH ×3 (07:14→18:15)
[2017-06-19] MEDS: ATENOLOL 50 MG TABLET PO SCH (09:28)
[2017-06-19] MEDS: CYANOCOBALAMIN (VITAMIN B-12) 1,000 MCG TABLET PO SCH (09:29)
[2017-06-19] MEDS: FLUTICASONE NASAL SPRAY 50 MCG/SPRY 120 SPRAY/16 GM NASL SCH ×2 (09:29→18:25)
[2017-06-19] MEDS: DOCUSATE SODIUM 100 MG CAPSULE PO SCH (09:30)
[2017-06-19] MEDS: LOSARTAN POTASSIUM 50 MG TABLET PO SCH (09:30)
[2017-06-19] MEDS: LACTOBACILLUS ACIDOPHILUS 250 MG TAB PO SCH ×2 (09:30→18:25)
[2017-06-19] MEDS: MAGNESIUM OXIDE 400 MG TABLET PO SCH ×2 (09:30→18:25)
[2017-06-19 10:57] LABS: PATH REVIEW PATHOLOGIST REVIEWED
--- NOTE | 2017-06-19 11:01 | PDOC PROGRESS REPORT ---
Subjective Progress Note for:: 06/19/17 Subjective:: The patient is a 62-year-old female who has a history of diabetes and hypertension. 2 months ago she had an exploratory laparotomy with lysis of adhesions, small bowel resection and closure of the abdominal wall with the polypropylene mesh and lateral abdominal wall release. She was admitted to this hospital through the outpatient surgical clinic due to feculent smelling drainage from her abdominal wall and was found to have a fluid -filled collection in the subcutaneous space of her abdominal wall on the right side for several weeks which was felt to be due to liquefied hematoma. CAT scan of the abdomen and pelvis done on admission with oral contrast showed air-fluid collection in the subcutaneous space without involvement of the bowel wall. The viscera appeared intact with no evidence of small bowel obstruction fistula or leak. She was started on treatment for superficial abdominal wall infection. On June 15 she underwent extensive debridement of subcutaneous tissue and nonviable skin. The infection did not appear to penetrate into the abdominal cavity. 2 large [place] drains were placed through the initial debridement site. The hospitalist service was consulted for management of her diabetes. She had 2 bowel movements yesterday. She has been tolerating her diet well. Today is day 5 of Zosyn, her wound cultures grew group B strep and Morganella. This morning she reports some blood after she wiped herself after passing urine , and is wondering if this was secondary to the [place]. She denies any blood in her stools. She received 2 units of packed red blood cells yesterday. Her last colonoscopy and endoscopy were in July 2016, and were reportedly normal according to the patient. We will get a UA to check for hematuria. Reason For Visit: ABDOMINAL WALL SEPSIS Physical Exam Vital Signs: Temp Pulse Resp BP Pulse Ox 98.3 F 99 20 134/60 H 100 06/19/17 08:34 06/19/17 08:34 06/19/17 08:34 06/19/17 08:34 06/19/17 08:34 Intake & Output 06/18/17 06/19/17 06/20/17 06:59 06:59 06:59 Intake Total 3309 9190 Output Total 1200 2360 Balance 2109 6830 Weight 105.5 kg 107.3 kg Additional comments: Middle-aged -Citizen Of [place] female lying comfortably in bed. Lungs: Clear to auscultation bilaterally, normal respiratory effort Cardiac: S1-S2 regular, no peripheral edema no cyanosis or calf tenderness Abdomen: Abdominal binder in place. Results Laboratory Results: 06/19/17 05:04 06/19/17 05:04 06/18/17 06/18/17 06/19/17 14:03 16:05 05:04 WBC 7.1 6.3 RBC 3.65 L 3.85 Hgb 7.6 L 8.6 L Hct 23.5 L 26.9 L MCV 64 L 70 L D MCH 20.9 L 22.4 L MCHC 32.5 32.1 RDW 18.5 H 23.1 H Plt Count 368 302 Sodium Potassium Chloride Carbon Dioxide Anion Gap BUN Creatinine Est GFR ( Amer) Est GFR (Non-Af Amer) Glucose Calcium Phosphorus Magnesium Total Bilirubin AST ALT Alkaline Phosphatase Total Protein Albumin Blood Type B POSITIVE Antibody Screen NEGATIVE 06/19/17 05:04 WBC RBC Hgb Hct MCV MCH MCHC RDW Plt Count Sodium 140.4 Potassium 3.9 Chloride 115 H Carbon Dioxide 17 L Anion Gap 8 BUN 10 Creatinine 1.08 Est GFR ( Amer) > 60 Est GFR (Non-Af Amer) 52 L Glucose 93 Calcium 7.9 L Phosphorus 4.9 H Magnesium 1.7 Total Bilirubin 0.4 AST 9 L ALT 25 Alkaline Phosphatase 77 Total Protein 5.4 L Albumin 2.1 L Blood Type Antibody Screen Impressions: Abdomen/Pelvis CT 06/15/17 11:37 IMPRESSION: Superficial abscess right lower quadrant anterior abdominal wall. Intact ventral hernia repair. No CT evidence of bowel obstruction. No extravasation of oral contrast identified. Assessment & Plan - Diagnosis (1) Abdominal wall abscess at site of surgical wound Is this a current diagnosis for this admission?: Yes Plan: Day 5 of Zosyn Continue dressing changes and management per surgical service. (2) Hyperlipidemia associated with type 2 diabetes mellitus Is this a current diagnosis for this admission?: Yes (3) Hypertension Qualifiers: Hypertension type: essential hypertension Qualified Code(s): I10 - Essential (primary) hypertension Is this a current diagnosis for this admission?: Yes Plan: Continue home medications. (4) Type II diabetes mellitus Qualifiers: Diabetes mellitus complication status: without complication Diabetes mellitus fpc insulin use: without meterman use Qualified Code(s): E11.9 - Type 2 diabetes mellitus without complications Is this a current diagnosis for this admission?: Yes (5) Hypomagnesemia Is this a current diagnosis for this admission?: Yes Plan: Repleted. Continue to monitor. - Time Time Spent with patient: 15-24 minutes
[2017-06-19] MEDS: NORMAL SALINE 1000 ML 1,000 ML IV PRN (12:17)
[2017-06-19 13:19] LABS: APPEARANCE,URINE SLIGHTLY-CLOUDY; BILIRUBIN,URINE NEGATIVE (NEGATIVE); COLOR,URINE YELLOW; GLUCOSE, URINE NEGATIVE (NEGATIVE); KETONES,URINE NEGATIVE (NEGATIVE); LEUKOCYTE ESTERASE,URINE LARGE (NEGATIVE); NITRITE,URINE NEGATIVE (NEGATIVE); PROTEIN,URINE 30 mg/dL (NEGATIVE); URINE SPECIFIC GRAVITY 1.026; UROBILINOGEN,URINE NEGATIVE mg/dL (<2.0)
[2017-06-19] MEDS ORDERED: INFLUENZA ADLT QUAD (36MOS+) 2017-18 VAC 0.5 ML SYR IM PRN (13:20)
[2017-06-19 15:06] LABS: HEMATOCRIT 26.3 % (36.0-47.0); HEMOGLOBIN 8.5 g/dL (12.0-15.5); MEAN CORPUSCULAR HEMOGLOBIN 22.6 pg (27.0-33.4); MEAN CORPUSCULAR HGB CONC 32.5 g/dL (32.0-36.0); MEAN CORPUSCULAR VOLUME 70 fl (80-97); PLATELET COUNT 340 10^3/uL (150-450); RED BLOOD COUNT 3.77 10^6/uL (3.72-5.28); RED CELL DISTRIBUTION WIDTH 23.6 % (11.5-14.0); WHITE BLOOD COUNT 8.3 10^3/uL (4.0-10.5)
[2017-06-19] MEDS: KETOROLAC TROMETHAMINE INJ/PF 30 MG/1 ML SDV IV PRN (15:37)
[2017-06-19] MEDS ORDERED: ACETAMINOPHEN 325 MG TABLET PO PRN (16:31)
[2017-06-19] MEDS ORDERED: ACETAMINOPHEN 325 MG TABLET ONE (16:32)
--- NOTE | 2017-06-19 17:05 | PDOC PROGRESS REPORT ---
Subjective Progress Note for:: 06/19/17 Subjective:: Patient is now postop day 1 from her second debridement for abdominal wall abscess involving what appears to be mainly subcutaneous tissue and fat. This has grown Morganella sensitive to Pipericillin. She is on piperacillin IV. He was noted to be somewhat anemic. She received transfusion overnight and hemoglobin this morning is improved. Reason For Visit: ABDOMINAL WALL SEPSIS Physical Exam Vital Signs: Temp Pulse Resp BP Pulse Ox 98.3 F 99 20 134/60 H 100 06/19/17 08:34 06/19/17 08:34 06/19/17 08:34 06/19/17 08:34 06/19/17 08:34 Intake & Output 06/18/17 06/19/17 06/20/17 06:59 06:59 06:59 Intake Total 3309 9190 Output Total 1200 2360 Balance 2109 6830 Weight 105.5 kg 107.3 kg General appearance: PRESENT: no acute distress, morbidly obese, well-nourished Head exam: PRESENT: atraumatic GI/Abdominal exam: PRESENT: normal bowel sounds, other - Dressings were removed with the nurse. Saline moistened Kerlix roll gauze was removed from subcutaneous space through 3 incision sites. The tissue appears to be healthy minimal if any necrotic tissue present slight bleeding occurred with removal of dressings. Repacked with 5 unfolded saline moistened 4 x 4's. Several dry 4 x 4's and ABDs placed over the top. There is a connection in subcu space between all of these these incisions. Results Laboratory Results: 06/19/17 14:40 06/19/17 05:04 06/18/17 06/19/17 06/19/17 16:05 05:04 05:04 WBC 6.3 RBC 3.85 Hgb 8.6 L Hct 26.9 L MCV 70 L D MCH 22.4 L MCHC 32.1 RDW 23.1 H Plt Count 302 Sodium 140.4 Potassium 3.9 Chloride 115 H Carbon Dioxide 17 L Anion Gap 8 BUN 10 Creatinine 1.08 Est GFR ( Amer) > 60 Est GFR (Non-Af Amer) 52 L Glucose 93 Calcium 7.9 L Phosphorus 4.9 H Magnesium 1.7 Total Bilirubin 0.4 AST 9 L ALT 25 Alkaline Phosphatase 77 Total Protein 5.4 L Albumin 2.1 L Urine Color Urine Appearance Urine pH Ur Specific Exline Urine Protein Urine Glucose (UA) Urine Ketones Urine Blood Urine Nitrite Ur Leukocyte Esterase Urine WBC (Auto) Urine RBC (Auto) Blood Type B POSITIVE Antibody Screen NEGATIVE 06/19/17 06/19/17 13:05 14:40 WBC 8.3 RBC 3.77 Hgb 8.5 L Hct 26.3 L MCV 70 L MCH 22.6 L MCHC 32.5 RDW 23.6 H Plt Count 340 Sodium Potassium Chloride Carbon Dioxide Anion Gap BUN Creatinine Est GFR ( Amer) Est GFR (Non-Af Amer) Glucose Calcium Phosphorus Magnesium Total Bilirubin AST ALT Alkaline Phosphatase Total Protein Albumin Urine Color YELLOW Urine Appearance SLIGHTLY-CLOUDY Urine pH 5.0 Ur Specific Exline 1.026 Urine Protein 30 H Urine Glucose (UA) NEGATIVE Urine Ketones NEGATIVE Urine Blood MODERATE H Urine Nitrite NEGATIVE Ur Leukocyte Esterase LARGE H Urine WBC (Auto) 15 Urine RBC (Auto) 25 Blood Type Antibody Screen 06/15/17 16:51 Abdomen - Abscess Gram Stain - Final 06/15/17 16:51 Abdomen - Abscess Wound Culture - Final Morganella Morganii Group B Beta Streptococcus Peptostreptococcus Species Impressions: Abdomen/Pelvis CT 06/15/17 11:37 IMPRESSION: Superficial abscess right lower quadrant anterior abdominal wall. Intact ventral hernia repair. No CT evidence of bowel obstruction. No extravasation of oral contrast identified. Assessment & Plan - Diagnosis (1) Abdominal wall abscess at site of surgical wound Is this a current diagnosis for this admission?: Yes Plan: Daily dressing changes, continue IV antibiotics. (2) SBO (small bowel obstruction) Is this a current diagnosis for this admission?: No (3) Type II diabetes mellitus Qualifiers: Diabetes mellitus complication status: without complication Diabetes mellitus lobsterman insulin use: without fpc use Qualified Code(s): E11.9 - Type 2 diabetes mellitus without complications Is this a current diagnosis for this admission?: Yes
[2017-06-19] MEDS ORDERED: TRAMADOL HCL 50 MG TABLET PO PRN (18:33)
[2017-06-19] MEDS: SIMVASTATIN 40 MG TABLET PO SCH (21:51)
[2017-06-19] MEDS: OXYCODONE-ACETAMINOPHEN 5-325 MG TABLET PO PRN (22:00)
[2017-06-20 05:21] LABS: ANION GAP 9 (5-19); BLOOD UREA NITROGEN 8 mg/dL (7-20); CALCIUM 8.5 mg/dL (8.4-10.2); CARBON DIOXIDE 17 mmol/L (22-30); CHLORIDE 115 mmol/L (98-107); GLUCOSE 88 mg/dL (75-110); POTASSIUM 3.8 mmol/L (3.6-5.0)
[2017-06-20] MEDS: LANSOPRAZOLE 30 MG TAB.RAP.DR PO SCH (06:50)
[2017-06-20] MEDS: PIPERACILLIN SODIUM/TAZOBACTAM 3.375 GM in NORMAL SALINE 100 ML IV SCH ×3 (06:50→22:06)
[2017-06-20] MEDS: INSULIN LISPRO 100 UNIT/ML 3 ML VIAL SUBCUT SCH ×3 (08:08→16:33)
[2017-06-20] MEDS: LORATADINE 10 MG TABLET PO SCH (10:00)
[2017-06-20] MEDS: LACTOBACILLUS ACIDOPHILUS 250 MG TAB PO SCH ×2 (10:00→18:25)
[2017-06-20] MEDS: CYANOCOBALAMIN (VITAMIN B-12) 1,000 MCG TABLET PO SCH (10:00)
[2017-06-20] MEDS: OXYCODONE-ACETAMINOPHEN 5-325 MG TABLET PO PRN ×2 (10:00→22:02)
[2017-06-20] MEDS: MAGNESIUM OXIDE 400 MG TABLET PO SCH ×2 (10:00→18:25)
[2017-06-20] MEDS: ATENOLOL 50 MG TABLET PO SCH (10:00)
[2017-06-20] MEDS: FLUTICASONE NASAL SPRAY 50 MCG/SPRY 120 SPRAY/16 GM NASL SCH ×2 (10:00→18:26)
[2017-06-20] MEDS: LOSARTAN POTASSIUM 50 MG TABLET PO SCH (10:00)
[2017-06-20] MEDS: DOCUSATE SODIUM 100 MG CAPSULE PO SCH (10:39)
--- NOTE | 2017-06-20 13:40 | PDOC PROGRESS REPORT ---
Subjective Progress Note for:: 06/20/17 Subjective:: Summary: 2 months ago she had an exploratory laparotomy with lysis of adhesions, small bowel resection and closure of the abdominal wall with the polypropylene mesh and lateral abdominal wall release. She was admitted to this hospital through the outpatient surgical clinic due to feculent smelling drainage from her abdominal wall and was found to have a fluid -filled collection in the subcutaneous space of her abdominal wall on the right side for several weeks which was felt to be due to liquefied hematoma. CAT scan of the abdomen and pelvis done on admission with oral contrast showed air-fluid collection in the subcutaneous space without involvement of the bowel wall. The viscera appeared intact with no evidence of small bowel obstruction fistula or leak. She was started on treatment for superficial abdominal wall infection. On June 15 she underwent extensive debridement of subcutaneous tissue and nonviable skin. The infection did not appear to penetrate into the abdominal cavity. 2 large [place] drains were placed through the initial debridement site. The hospitalist service was consulted for management of her diabetes. Today, she offers no complaints. Reason For Visit: ABDOMINAL WALL SEPSIS Physical Exam Vital Signs: Temp Pulse Resp BP Pulse Ox 98.2 F 73 16 152/73 H 100 06/20/17 00:00 06/20/17 00:00 06/20/17 00:00 06/20/17 00:00 06/20/17 00:00 Intake & Output 06/19/17 06/20/17 06/21/17 06:59 06:59 06:59 Intake Total 9190 2358 Output Total 2360 200 Balance 6830 2158 Weight 107.3 kg 109.7 kg General appearance: PRESENT: no acute distress, well-developed, well-nourished Head exam: PRESENT: atraumatic, normocephalic Eye exam: PRESENT: conjunctiva pink, EOMI, PERRLA. ABSENT: scleral icterus Respiratory exam: PRESENT: clear to auscultation danielle. ABSENT: rales, rhonchi, wheezes Cardiovascular exam: PRESENT: RRR. ABSENT: diastolic murmur, rubs, systolic murmur Neurological exam: PRESENT: alert, awake, oriented to person, oriented to place , oriented to time, oriented to situation, CN II-XII grossly intact. ABSENT: motor sensory deficit Psychiatric exam: PRESENT: appropriate affect, normal mood. ABSENT: homicidal ideation, suicidal ideation Results Laboratory Results: 06/19/17 14:40 06/20/17 04:12 06/15/17 06/19/17 06/20/17 16:25 14:40 04:12 WBC 8.3 RBC 3.77 Hgb 8.5 L Hct 26.3 L MCV 70 L MCH 22.6 L MCHC 32.5 RDW 23.6 H Plt Count 340 Sodium 141.0 Potassium 3.8 Chloride 115 H Carbon Dioxide 17 L Anion Gap 9 BUN 8 Creatinine 1.11 Est GFR ( Amer) > 60 Est GFR (Non-Af Amer) 50 L Glucose 88 Calcium 8.5 Blood Type B POSITIVE Antibody Screen NEGATIVE 06/15/17 16:51 Abdomen - Abscess Gram Stain - Final 06/15/17 16:51 Abdomen - Abscess Wound Culture - Final Morganella Morganii Group B Beta Streptococcus Peptostreptococcus Species Impressions: Abdomen/Pelvis CT 06/15/17 11:37 IMPRESSION: Superficial abscess right lower quadrant anterior abdominal wall. Intact ventral hernia repair. No CT evidence of bowel obstruction. No extravasation of oral contrast identified. Assessment & Plan - Diagnosis (1) Hyperlipidemia associated with type 2 diabetes mellitus Is this a current diagnosis for this admission?: Yes Plan: Continue statin (2) Hypertension Qualifiers: Hypertension type: essential hypertension Qualified Code(s): I10 - Essential (primary) hypertension Is this a current diagnosis for this admission?: Yes Plan: BP well controlled. Continue current medications. (3) Type II diabetes mellitus Qualifiers: Diabetes mellitus complication status: without complication Diabetes mellitus termination clerk insulin use: without correction use Qualified Code(s): E11.9 - Type 2 diabetes mellitus without complications Is this a current diagnosis for this admission?: Yes Plan: Blood sugars are normal. Continue current meds. - Time Time Spent with patient: 15-24 minutes Anticipated discharge: Home
[2017-06-20] MEDS: KETOROLAC TROMETHAMINE INJ/PF 30 MG/1 ML SDV IV PRN (14:51)
--- NOTE | 2017-06-20 17:26 | PDOC PROGRESS REPORT ---
Subjective Progress Note for:: 06/20/17 Subjective:: Today patient states she is eating okay and having bowel movements okay. Hospitalist note reflects that her diabetes is well controlled. She would like to begin planning to go home. She understands that the wounds are extensive and will need to have daily care or wound VAC. Some of her family was in the room with her today when I discussed this with her. Reason For Visit: ABDOMINAL WALL SEPSIS Physical Exam Vital Signs: Temp Pulse Resp BP Pulse Ox 98.3 F 79 13 151/89 H 100 06/20/17 12:00 06/20/17 12:00 06/20/17 12:00 06/20/17 12:00 06/20/17 12:00 Intake & Output 06/19/17 06/20/17 06/21/17 06:59 06:59 06:59 Intake Total 9190 2358 Output Total 2360 200 Balance 6830 2158 Weight 107.3 kg 109.7 kg GI/Abdominal exam: PRESENT: normal bowel sounds, other - Good bowel sounds. Wound is dressed and nurse will change dressing today. One seen yesterday and were clean with serosanguineous drainage and bled with dressing change some. Note that there is subcutaneous connection with each of these 3 wounds. Results Laboratory Results: 06/19/17 14:40 06/20/17 04:12 06/15/17 06/20/17 16:25 04:12 Sodium 141.0 Potassium 3.8 Chloride 115 H Carbon Dioxide 17 L Anion Gap 9 BUN 8 Creatinine 1.11 Est GFR ( Amer) > 60 Est GFR (Non-Af Amer) 50 L Glucose 88 Calcium 8.5 Blood Type B POSITIVE Antibody Screen NEGATIVE 06/15/17 16:51 Abdomen - Abscess Gram Stain - Final 06/15/17 16:51 Abdomen - Abscess Wound Culture - Final Morganella Morganii Group B Beta Streptococcus Peptostreptococcus Species Impressions: Abdomen/Pelvis CT 06/15/17 11:37 IMPRESSION: Superficial abscess right lower quadrant anterior abdominal wall. Intact ventral hernia repair. No CT evidence of bowel obstruction. No extravasation of oral contrast identified. Assessment & Plan - Diagnosis (1) Abdominal wall abscess at site of surgical wound Is this a current diagnosis for this admission?: Yes Plan: Daily dressing changes, continue IV antibiotics. Begin planning for discharge with discharge dependency case manager. Discussed with Dr. Raymundo and he agrees that a wound VAC may be appropriate in the near future. He is arranging referral to the outpatient wound clinic here in [facility]. We will need to decide about oral antibiotics as an outpatient tomorrow on discharge. (2) SBO (small bowel obstruction) Plan: This is resolved. (3) Type II diabetes mellitus Qualifiers: Diabetes mellitus complication status: without complication Diabetes mellitus shelter insulin use: without truck terminal manager use Qualified Code(s): E11.9 - Type 2 diabetes mellitus without complications Is this a current diagnosis for this admission?: Yes Plan: See hospitalist note. We will coordinate with them on discharge for continued care. This will make wound healing more difficult for her. She will need to be very specific on trying to keep her blood sugars controlled. - Time Time Spent with patient: 15-24 minutes Medications reviewed and adjusted accordingly: Yes - Inpatient Certification Based on my medical assessment, after consideration of the patient's comorbidities, presenting symptoms, or acuity I expect that the services needed warrant INPATIENT care.: Yes Post Hospital Care: D/C Side Puller Documentation - Planning to arrange outpatient wound clinic care. Patient will need to be cautious with diabetic control.
[2017-06-20] MEDS: SIMVASTATIN 40 MG TABLET PO SCH (22:03)
[2017-06-21] MEDS: LANSOPRAZOLE 30 MG TAB.RAP.DR PO SCH (06:13)
[2017-06-21] MEDS: PIPERACILLIN SODIUM/TAZOBACTAM 3.375 GM in NORMAL SALINE 100 ML IV SCH ×3 (06:13→21:43)
[2017-06-21] MEDS: INSULIN LISPRO 100 UNIT/ML 3 ML VIAL SUBCUT SCH ×3 (07:56→16:21)
--- NOTE | 2017-06-21 09:48 | PDOC PROGRESS REPORT ---
Subjective Progress Note for:: 06/21/17 Subjective:: Feels well. No complaints. Reason For Visit: ABDOMINAL WALL SEPSIS Physical Exam Vital Signs: Temp Pulse Resp BP Pulse Ox 98.2 F 76 18 154/70 H 100 06/21/17 07:40 06/21/17 07:40 06/21/17 07:40 06/21/17 07:40 06/21/17 07:40 Intake & Output 06/20/17 06/21/17 06/22/17 06:59 06:59 06:59 Intake Total 2358 800 Output Total 200 680 Balance 2158 120 Weight 109.7 kg 109.8 kg General appearance: PRESENT: no acute distress, cooperative Respiratory exam: PRESENT: clear to auscultation danielle Cardiovascular exam: PRESENT: RRR GI/Abdominal exam: PRESENT: other - Soft, nondistended, mild tenderness in the right lower abdomen where she has the open wounds. There is no erythema nor induration. The wounds have slight seropurulent drainage on the packing. Packing removed and wound probed. All of the wounds are interconnected. I do not palpate any underlying mesh. There is no necrotic debris. Results Laboratory Results: 06/19/17 14:40 06/20/17 04:12 06/19/17 13:05 Clean Catch Midstream Urine Culture - Final NO GROWTH 2 DAYS Impressions: Abdomen/Pelvis CT 06/15/17 11:37 IMPRESSION: Superficial abscess right lower quadrant anterior abdominal wall. Intact ventral hernia repair. No CT evidence of bowel obstruction. No extravasation of oral contrast identified. Assessment & Plan - Diagnosis (1) Abdominal wall abscess at site of surgical wound Is this a current diagnosis for this admission?: Yes Plan: Responding well to her debridements and local wound care. Will arrange a wound VAC for the patient as an outpatient. When arrangements have been made will discharge patient home, hopefully today.
[2017-06-21] MEDS: DOCUSATE SODIUM 100 MG CAPSULE PO SCH (10:08)
[2017-06-21] MEDS: LACTOBACILLUS ACIDOPHILUS 250 MG TAB PO SCH ×2 (10:12→18:28)
[2017-06-21] MEDS: CYANOCOBALAMIN (VITAMIN B-12) 1,000 MCG TABLET PO SCH (10:12)
[2017-06-21] MEDS: FLUTICASONE NASAL SPRAY 50 MCG/SPRY 120 SPRAY/16 GM NASL SCH ×2 (10:12→18:29)
[2017-06-21] MEDS: OXYCODONE-ACETAMINOPHEN 5-325 MG TABLET PO PRN ×2 (10:12→16:21)
[2017-06-21] MEDS: ATENOLOL 50 MG TABLET PO SCH (10:12)
[2017-06-21] MEDS: LOSARTAN POTASSIUM 50 MG TABLET PO SCH (10:13)
[2017-06-21] MEDS: LORATADINE 10 MG TABLET PO SCH (10:13)
[2017-06-21] MEDS: MAGNESIUM OXIDE 400 MG TABLET PO SCH ×2 (10:13→18:29)
--- NOTE | 2017-06-21 11:27 | PDOC PROGRESS REPORT ---
Subjective Progress Note for:: 06/21/17 Subjective:: Summary: 2 months ago she had an exploratory laparotomy with lysis of adhesions, small bowel resection and closure of the abdominal wall with the polypropylene mesh and lateral abdominal wall release. She was admitted to this hospital through the outpatient surgical clinic due to feculent smelling drainage from her abdominal wall and was found to have a fluid -filled collection in the subcutaneous space of her abdominal wall on the right side for several weeks which was felt to be due to liquefied hematoma. CAT scan of the abdomen and pelvis done on admission with oral contrast showed air-fluid collection in the subcutaneous space without involvement of the bowel wall. The viscera appeared intact with no evidence of small bowel obstruction fistula or leak. She was started on treatment for superficial abdominal wall infection. On June 15 she underwent extensive debridement of subcutaneous tissue and nonviable skin. The infection did not appear to penetrate into the abdominal cavity. 2 large Aracelis drains were placed through the initial debridement site. The hospitalist service was consulted for management of her diabetes. Today, as yesterday, she offers no complaints. She is hopeful about being discharged later today. Reason For Visit: ABDOMINAL WALL SEPSIS Physical Exam Vital Signs: Temp Pulse Resp BP Pulse Ox 98.2 F 76 18 154/70 H 100 06/21/17 07:40 06/21/17 07:40 06/21/17 07:40 06/21/17 07:40 06/21/17 07:40 Intake & Output 06/20/17 06/21/17 06/22/17 06:59 06:59 06:59 Intake Total 2358 800 Output Total 200 680 Balance 2158 120 Weight 109.7 kg 109.8 kg General appearance: PRESENT: no acute distress, well-developed, well-nourished Head exam: PRESENT: atraumatic, normocephalic Eye exam: PRESENT: conjunctiva pink, EOMI, PERRLA. ABSENT: scleral icterus Respiratory exam: PRESENT: clear to auscultation danielle. ABSENT: rales, rhonchi, wheezes Cardiovascular exam: PRESENT: RRR. ABSENT: diastolic murmur, rubs, systolic murmur Neurological exam: PRESENT: alert, awake, oriented to person, oriented to place , oriented to time, oriented to situation, CN II-XII grossly intact. ABSENT: motor sensory deficit Psychiatric exam: PRESENT: appropriate affect, normal mood. ABSENT: homicidal ideation, suicidal ideation Results Laboratory Results: 06/19/17 14:40 06/20/17 04:12 06/19/17 13:05 Clean Catch Midstream Urine Culture - Final NO GROWTH 2 DAYS Impressions: Abdomen/Pelvis CT 06/15/17 11:37 IMPRESSION: Superficial abscess right lower quadrant anterior abdominal wall. Intact ventral hernia repair. No CT evidence of bowel obstruction. No extravasation of oral contrast identified. Assessment & Plan - Diagnosis (1) Hyperlipidemia associated with type 2 diabetes mellitus Is this a current diagnosis for this admission?: Yes Plan: Continue statin (2) Hypertension Qualifiers: Hypertension type: essential hypertension Qualified Code(s): I10 - Essential (primary) hypertension Is this a current diagnosis for this admission?: Yes Plan: BP well controlled. Continue current medications. (3) Type II diabetes mellitus Qualifiers: Diabetes mellitus complication status: without complication Diabetes mellitus ferry terminal supervisor insulin use: without ferry terminal supervisor use Qualified Code(s): E11.9 - Type 2 diabetes mellitus without complications Is this a current diagnosis for this admission?: Yes Plan: Blood sugars are normal. Continue current meds. - Time Time Spent with patient: 15-24 minutes Medications reviewed and adjusted accordingly: Yes Anticipated discharge: Home - Inpatient Certification Medical Necessity: Need Close Monitoring Due to Risk of Patient Decompensation
[2017-06-21] MEDS: SIMVASTATIN 40 MG TABLET PO SCH (21:43)
[2017-06-22] MEDS: LANSOPRAZOLE 30 MG TAB.RAP.DR PO SCH (05:30)
[2017-06-22] MEDS: PIPERACILLIN SODIUM/TAZOBACTAM 3.375 GM in NORMAL SALINE 100 ML IV SCH ×2 (05:36→15:49)
[2017-06-22] MEDS: INSULIN LISPRO 100 UNIT/ML 3 ML VIAL SUBCUT SCH ×3 (08:17→15:50)
[2017-06-22] MEDS: DOCUSATE SODIUM 100 MG CAPSULE PO SCH (08:37)
[2017-06-22] MEDS: CYANOCOBALAMIN (VITAMIN B-12) 1,000 MCG TABLET PO SCH (09:07)
[2017-06-22] MEDS: LOSARTAN POTASSIUM 50 MG TABLET PO SCH (09:07)
[2017-06-22] MEDS: LACTOBACILLUS ACIDOPHILUS 250 MG TAB PO SCH ×2 (09:07→18:29)
[2017-06-22] MEDS: LORATADINE 10 MG TABLET PO SCH (09:07)
[2017-06-22] MEDS: FLUTICASONE NASAL SPRAY 50 MCG/SPRY 120 SPRAY/16 GM NASL SCH ×2 (09:07→18:29)
[2017-06-22] MEDS: ATENOLOL 50 MG TABLET PO SCH (09:07)
[2017-06-22] MEDS: MAGNESIUM OXIDE 400 MG TABLET PO SCH ×2 (09:07→18:29)
--- NOTE | 2017-06-22 14:50 | PDOC PROGRESS REPORT ---
Subjective Progress Note for:: 06/22/17 Subjective:: Summary: 2 months ago she had an exploratory laparotomy with lysis of adhesions, small bowel resection and closure of the abdominal wall with the polypropylene mesh and lateral abdominal wall release. She was admitted to this hospital through the outpatient surgical clinic due to feculent smelling drainage from her abdominal wall and was found to have a fluid -filled collection in the subcutaneous space of her abdominal wall on the right side for several weeks which was felt to be due to liquefied hematoma. CAT scan of the abdomen and pelvis done on admission with oral contrast showed air-fluid collection in the subcutaneous space without involvement of the bowel wall. The viscera appeared intact with no evidence of small bowel obstruction fistula or leak. She was started on treatment for superficial abdominal wall infection. On June 15 she underwent extensive debridement of subcutaneous tissue and nonviable skin. The infection did not appear to penetrate into the abdominal cavity. 2 large Aracelis drains were placed through the initial debridement site. The hospitalist service was consulted for management of her diabetes. Reason For Visit: ABDOMINAL WALL SEPSIS Physical Exam Vital Signs: Temp Pulse Resp BP Pulse Ox 98.2 F 80 17 157/77 H 99 06/22/17 11:22 06/22/17 11:22 06/22/17 11:22 06/22/17 11:22 06/22/17 11:22 Intake & Output 06/21/17 06/22/17 06/23/17 06:59 06:59 06:59 Intake Total 800 1620 Output Total 680 200 Balance 120 1420 Weight 109.8 kg 112.8 kg Results Laboratory Results: 06/19/17 14:40 06/20/17 04:12 06/18/17 15:15 Abdomen - Abscess Gram Stain - Final 06/18/17 15:15 Abdomen - Abscess Wound Culture - Final Klebsiella Pneumoniae Morganella Morganii Skin Noemy No Anaerobic Organisms Impressions: Abdomen/Pelvis CT 06/15/17 11:37 IMPRESSION: Superficial abscess right lower quadrant anterior abdominal wall. Intact ventral hernia repair. No CT evidence of bowel obstruction. No extravasation of oral contrast identified. Assessment & Plan - Diagnosis (1) Hyperlipidemia associated with type 2 diabetes mellitus Is this a current diagnosis for this admission?: Yes Plan: Continue statin (2) Hypertension Qualifiers: Hypertension type: essential hypertension Qualified Code(s): I10 - Essential (primary) hypertension Is this a current diagnosis for this admission?: Yes Plan: BP elevated. Add HCTZ 25 daily. (3) Type II diabetes mellitus Qualifiers: Diabetes mellitus complication status: without complication Diabetes mellitus extermination inspector insulin use: without extermination inspector use Qualified Code(s): E11.9 - Type 2 diabetes mellitus without complications Is this a current diagnosis for this admission?: Yes Plan: Blood sugars are normal. Continue current meds.
[2017-06-22] MEDS: SIMVASTATIN 40 MG TABLET PO SCH (21:05)
[2017-06-22] MEDS: OXYCODONE-ACETAMINOPHEN 5-325 MG TABLET PO PRN (21:09)
[2017-06-22 21:44] VITALS: BP 165/89
[2017-06-23] MEDS ORDERED: HYDROCHLOROTHIAZIDE 25 MG TABLET PO SCH (10:00)
--- NOTE | 2017-06-23 12:35 | PDOC PROGRESS REPORT ---
Subjective Progress Note for:: 06/23/17 Subjective:: less abdominal pains Reason For Visit: ABDOMINAL WALL SEPSIS Physical Exam Vital Signs: Temp Pulse Resp BP Pulse Ox 98.3 F 87 18 165/89 H 100 06/22/17 21:48 06/22/17 21:48 06/22/17 21:48 06/22/17 21:48 06/22/17 21:48 Intake & Output 06/22/17 06/23/17 06/24/17 06:59 06:59 06:59 Intake Total 1620 218 Output Total 200 Balance 1420 218 Weight 112.8 kg Exam: Abdomen is soft and nontender Colostomy functioning but NGT about 400 ccs from last night Results Laboratory Results: 06/19/17 14:40 06/20/17 04:12 06/18/17 15:15 Abdomen - Abscess Gram Stain - Final 06/18/17 15:15 Abdomen - Abscess Wound Culture - Final Klebsiella Pneumoniae Morganella Morganii Skin Noemy No Anaerobic Organisms Impressions: Abdomen/Pelvis CT 06/15/17 11:37 IMPRESSION: Superficial abscess right lower quadrant anterior abdominal wall. Intact ventral hernia repair. No CT evidence of bowel obstruction. No extravasation of oral contrast identified. Assessment & Plan - Time Time Spent with patient: 15-24 minutes - Inpatient Certification Medical Necessity: Significant Comorbidiites Make Outpatient Treatment Too Risky , Need For IV Fluids, Risk of Complication if Not Cared For in Hospital - Plan Summary Plan Summary: Will check Gastrograffin SBFT prior to eventually D/C NGT Check lytes
--- NOTE | 2017-08-25 11:04 | DISCHARGE SUMMARY E ---
Discharge Summary NAME: TAJ PENN : 1955 AGE: 62Y ADMITTED: 06/15/2017 DISCHARGED: 06/22/2017 FINAL DIAGNOSES: 1. ABDOMINAL WALL ABSCESS AT SITE OF SURGICAL WOUND. 2. DIABETES MELLITUS. 3. HYPERLIPIDEMIA. PROCEDURES: 1. On 06/15/2017 extensive debridement of cutaneous, subcutaneous tissue and limited skin debridement of right-sided abdominal wall infection, surgeon Dr. Raymundo. 2. On 06/18/2017 debridement of subcutaneous wound infection with further debridement of abdominal wall tissue out to fascia along with abdominal wall washout, surgeon Dr. No. HOSPITAL COURSE: Patient was admitted for feculent drainage from abdominal wall area from previous incision site. Patient did have a lysis of adhesions with placement of a [place]-Rene mesh of the abdominal wall on 04/[address] Raymundo. Patient has been having a collection at the subcut space on the right side for weeks, and this was felt to be due to liquefied hematoma until patient came to the Surgical Clinic on 06/15/2017 and was then brought to the hospital for admission. Patient underwent debridement by Dr. Raymundo on admission, and cultures showed Morganella morganii, group-B beta strep, and Peptostreptococcus species. Patient started right away on IV antibiotics. On 06/18/2017, patient also brought back to the OR for further debridement done by Dr. No. On 06/22/2017, patient's wound appears to be relatively clean, and arrangements will be made on outpatient basis for a wound VAC by Dr. Raymundo. Patient was then discharged improved on 06/22/2017 with final diagnoses of: 1. Infected abdominal wall with abscess and necrotic tissue. 2. Diabetes mellitus. Medical hospitalist also consulted at admission for the diabetes management. DICTATING PHYSICIAN: AUDIE STEARNS M.D. [id number] PHY#: [id number] ID: [id number] JOB#: [id number] ACCT: [id number] cc:ROSA RAYMUNDO M.D. AUDIE STEARNS M.D. >
== END 2017-06-22 22:40 | disposition home health service (06) | DRG 857 ==
LOC: RAD 11:31 → EDSTATUS 11:45 → OBSVTOIN 15:03 → INOR 15:03 → INTOOBSV 17:22 → OBSVTOIN 17:22 → ICU 18:25 → 4N 06-16 14:29
PROVIDERS: ADMIT Surgery; ATTEND Surgery
PROC: 30233N1 Transfusion of Nonautologous Red Blood Cells into Peripheral Vein, Percutaneous Approach (ICD-10-PCS; 2017-06-15)
PROC: 0JB80ZZ Excision of Abdomen Subcutaneous Tissue and Fascia, Open Approach (ICD-10-PCS; principal; 2017-06-15 16:00)
PROC: 0JB80ZZ Excision of Abdomen Subcutaneous Tissue and Fascia, Open Approach (ICD-10-PCS; 2017-06-18)
PROC: 30233N1 Transfusion of Nonautologous Red Blood Cells into Peripheral Vein, Percutaneous Approach (ICD-10-PCS; 2017-06-18)
PROC: 3E0234Z Introduction of Serum, Toxoid and Vaccine into Muscle, Percutaneous Approach (ICD-10-PCS; 2017-06-22)
DX: T81.4XXA Infection following a procedure, initial encounter (principal); L76.34 Postprocedural seroma of skin and subcutaneous tissue following other procedure; L02.211 Cutaneous abscess of abdominal wall; E11.9 Type 2 diabetes mellitus without complications; E78.5 Hyperlipidemia, unspecified; I10 Essential (primary) hypertension; K21.9 Gastro-esophageal reflux disease without esophagitis; E83.42 Hypomagnesemia; D64.9 Anemia, unspecified; K44.9 Diaphragmatic hernia without obstruction or gangrene; B96.1 Klebsiella pneumoniae [K. pneumoniae] as the cause of diseases classified elsewhere; B95.1 Streptococcus, group B, as the cause of diseases classified elsewhere; B96.89 Other specified bacterial agents as the cause of diseases classified elsewhere; Y83.8 Other surgical procedures as the cause of abnormal reaction of the patient, or of later complication, without mention of misadventure at the time of the procedure; Y92.9 Unspecified place or not applicable; Z79.84 Long term (current) use of oral hypoglycemic drugs; Z79.4 Long term (current) use of insulin; Z79.899 Other long term (current) drug therapy; Z23 Encounter for immunization
CPT/HCPCS: 36415; 36430; 700; 74176; 800; 80048; 80053; 81001; 82565; 82962; 83735; 84100; 85025; 85027; 86850; 86900; 86901; 86920; 87070; 87075; 87077; 87086; 87186; 87205; 90686; 93005; 93010; 94799; J0131; J0295; J0330; J1170; J1815; J1885; J2250; J2270; J2405; J2543; J2550; J2704; J2765; J3010; J3475; J3490; J7030; P9016

== ENCOUNTER → 2018-06-05 | Outpatient (CLI) | payer OTHER ==
--- NOTE | 2018-06-05 10:29 | WOMENS IMAGING REPORT ---
EXAM DESCRIPTION: BILAT SCREENING MAMMO W/CAD COMPLETED DATE/TIME: 06/05/2018 9:29 am REASON FOR STUDY: BILATERAL SCREENING MAMMO /Z12.31 Z12.31 ENCNTR SCREEN MAMMOGRAM FOR MALIGNANT NE OPLASM OF ELA COMPARISON: Multiple since 2008 TECHNIQUE: Standard craniocaudal and mediolateral oblique views of each breast recorded using [employer] l acquisition. LIMITATIONS: None. FINDINGS: No masses, calcifications or architectural distortion. No areas of suspicion. Read with the assistance of CAD. .[facility] - R2 Cenova Version 1.3 .[facility] Imaging - R2 Cenova Version 1.3 .[facility] - R2 Cenova Version 2.4 .[facility] [place] R2 Cenova Version 2.4 .[facility] - R2 Pelota Maker Version 9.2 IMPRESSION: NORMAL MAMMOGRAM. BIRADS 1. BREAST DENSITY: b. There are scattered areas of fibroglandular density. BIRAD: 1 NEGATIVE RECOMMENDATION: ROUTINE SCREENING Please continue bilateral screening mammography/tomosynthesis in May 2019 COMMENT: The patient has been notified of the results by letter per SA requirements. Additional no tification policies are in place for contacting patient with suspicious or incomplete findings. Quality ID #[id number]: The [employer] recommends an annual screening mammogram for women aged 40 years or over. This facility utilizes a reminder system to ensure that all patients receive reminder letters, and/or direct phone calls for appointments. This includes reminders for routine scr eening mammograms, diagnostic mammograms, or other Breast Imaging Interventions when appropriate. Th is patient will be placed in the appropriate reminder system. The [employer] (ACR) has developed recommendations for screening MRI of the breast s in certain patient populations, to be used in conjunction with mammography. Breast MRI surveillanc e may be appropriate for women with more than 20% lifetime risk of developing breast cancer as deter mined by genetic testing, significant family history of the disease, or history of mantle radiation f or Hodgkins Disease. ACR Practice Guidelines 2008. TECHNICAL DOCUMENTATION: FINDING NUMBER: (1) ASSESSMENT: (1) JOB ID: [id number] [employer]- All Rights Reserved Reading location - IP/workstation name: [email or web address]
== END ==
LOC: WI 08:58
PROVIDERS: ATTEND Physician Assistant
DX: Z12.31 Encounter for screening mammogram for malignant neoplasm of breast (principal)
CPT/HCPCS: 77067

== ENCOUNTER → 2019-06-06 | Outpatient (CLI) | payer OTHER ==
--- NOTE | 2019-06-06 09:49 | WOMENS IMAGING REPORT ---
EXAM DESCRIPTION: BONE DENSITY HIP/SPINE COMPLETED DATE/TIME: 06/06/2019 9:17 am REASON FOR STUDY: Z78.0 BONE DENSITY Z12.31 ENCNTR SCREEN MAMMOGRAM FOR MALIGNANT NEOPLASM OF ELA Z 78.0 ASYMPTOMATIC MENOPAUSAL STATE COMPARISON: None. TECHNIQUE: Dual-Energy X-ray Absorptiometry (DEXA) of the AP Spine and Hip. LIMITATIONS: 05/31/2015 FINDINGS: LUMBAR SPINE: The bone mineral density (BMD) measured from L1-L4 in the AP projection correlates with a T-score of -1.1, which is osteopenia as defined by the World Health Organization. HIP: The bone mineral density (BMD) measured in the left hip correlates with a T-score of -0.9, which is n ormal as defined by the World Health Organization. IMPRESSION: 1. LUMBAR SPINE: OSTEOPENIA. There has been a -7.3% change since baseline. 2. HIP: NORMAL. There has been a -2.0% change since baseline. COMMENT: The World Health Organization defines low BMD as follows: T-score: Normal: Greater than -1.0 Osteopenia: Between -1.0 and -2.5 Osteoporosis: Less than -2.5 without fractures Established osteoporosis: Less than -2.5 with fractures In general, you may wish to consider: Diagnosis Treatment Follow-up DEXA Normal BMD Prevention 2-3 years Osteopenia Prevention/Therapy 1-2 years Osteoporosis Therapy Yearly TECHNICAL DOCUMENTATION: JOB ID: [id number] [employer]- All Rights Reserved Reading location - IP/workstation name: [email or web address]
--- NOTE | 2019-06-06 14:17 | WOMENS IMAGING REPORT ---
EXAM DESCRIPTION: BILAT SCREENING MAMMO W/CAD COMPLETED DATE/TIME: 06/06/2019 9:17 am REASON FOR STUDY: Z12.31 SCREENING MAMMO Z12.31 ENCNTR SCREEN MAMMOGRAM FOR MALIGNANT NEOPLASM OF B RE Z78.0 ASYMPTOMATIC MENOPAUSAL STATE COMPARISON: 2014 to 2017 EXAM PARAMETERS: Standard craniocaudal and mediolateral oblique views of each breast recorded using digital acquisition. Read with the assistance of CAD. [facility] [employer] Dependency Director Version 9.2 LIMITATIONS: None. FINDINGS: No suspicious masses, suspicious calcifications or architectural distortion. No areas of c oncern. IMPRESSION: Negative MAMMOGRAM. BIRADS 1 BREAST DENSITY: c. The breasts are heterogeneously dense, which may obscure small masses. BIRAD: ASSESSMENT: 1 NEGATIVE RECOMMENDATION: ROUTINE SCREENING COMMENT: The patient has been notified of the results by letter per MQSA requirements. Additional no tification policies are in place for contacting patient with suspicious or incomplete findings. Quality ID #[id number]: The [employer] recommends an annual screening mammogram for women aged 40 years or over. This facility utilizes a reminder system to ensure that all patients receive reminder letters, and/or direct phone calls for appointments. This includes reminders for routine scr eening mammograms, diagnostic mammograms, or other Breast Imaging Interventions when appropriate. Th is patient will be placed in the appropriate reminder system. TECHNICAL DOCUMENTATION: FINDING NUMBER: (1) ASSESSMENT: (1) JOB ID: [id number] [employer]- All Rights Reserved Reading location - IP/workstation name: [email or web address]
== END ==
LOC: WI 08:50
PROVIDERS: ATTEND Physician Assistant
DX: Z12.31 Encounter for screening mammogram for malignant neoplasm of breast (principal); M85.88 Other specified disorders of bone density and structure, other site; Z78.0 Asymptomatic menopausal state
CPT/HCPCS: 77067; 77080

== ENCOUNTER → 2020-06-15 | Outpatient (CLI) | payer OTHER ==
--- NOTE | 2020-06-15 09:55 | WOMENS IMAGING REPORT ---
EXAM DESCRIPTION: 3D SCREENING MAMMO BILAT IMAGES COMPLETED DATE/TIME: 06/15/2020 6:30 am REASON FOR STUDY: Z12.31 ENCNTR SCREEN MAMMOGRAM FOR MALIGNANT NEOPLASM OF BREAST Z12.31 ENCNTR SCR EEN MAMMOGRAM FOR MALIGNANT NEOPLASM OF ELA COMPARISON: 06/06/2019, 06/05/2018, 06/04/2017, 06/01/2016 EXAM PARAMETERS: Standard craniocaudal and mediolateral oblique views of each breast recorded using digital acquisition and breast tomosynthesis. Read with the assistance of CAD. .[facility] - R2 Presentation Specialist Version 9.2 LIMITATIONS: None. FINDINGS: Findings present which are benign by mammographic criteria. No suspicious masses, calcific ations or architectural distortion. Pertinent benign findings: Nodularity in the right breast is stable. Few scattered benign calcificat ions in both breasts unchanged. Benign mammographic findings may include one or more of the following: Smooth masses, popcorn/rim/coa rse calcifications, asymmetries, post-procedure changes, and lesions with long-standing stability. IMPRESSION: BENIGN MAMMOGRAPHIC FINDINGS. BIRADS 2 BREAST DENSITY: b. There are scattered areas of fibroglandular density. BIRAD: ASSESSMENT: 2 BENIGN FINDING(S) RECOMMENDATION: ROUTINE SCREENING COMMENT: The patient has been notified of the results by letter per MQSA requirements. Additional no tification policies are in place for contacting patient with suspicious or incomplete findings. Quality ID #[id number]: The [employer] recommends an annual screening mammogram for women aged 40 years or over. This facility utilizes a reminder system to ensure that all patients receive reminder letters, and/or direct phone calls for appointments. This includes reminders for routine scr eening mammograms, diagnostic mammograms, or other Breast Imaging Interventions when appropriate. Th is patient will be placed in the appropriate reminder system. TECHNICAL DOCUMENTATION: FINDING NUMBER: (1) ASSESSMENT: (1) JOB ID: [id number] 2010 [employer]- All Rights Reserved Reading location - IP/workstation name: [email or web address]
== END ==
LOC: WI 06-07 07:33
PROVIDERS: ATTEND Physician Assistant
DX: Z12.31 Encounter for screening mammogram for malignant neoplasm of breast (principal)
CPT/HCPCS: 77063; 77067